=== PATIENT | male | born 1935 | race Caucasian/White ===

== ENCOUNTER → 2017-02-09 | Outpatient (CLI) | payer MEDICARE ==
[~2017-02-09] VITALS: Ht 190.5 cm; Wt 124.1 kg
[~2017-02-09] MED LIST: ALLO100T PO; ASCO500 PO; ASPI81TA2 PO; ATOR20TA86 PO; AZIT250T6 PO; BUME1TAB30 PO; CARV6 PO; COLC0.6T69 PO; DOXA1 PO; GABA-531 PO; HYDR25 PO; INSU100V SQ; INSU100V12 SQ; IPRA3AMP4 NEB; ISOS60TA4 PO; METF500T4 PO; MONT10TA21 PO; MULT1CAP32 PO; NORT10 PO; PRAM0.258 PO; ROFL500T PO
[2017-02-09 11:06] VITALS: BP 127/55
== END | disposition home or self-care (01) ==
LOC: HBOWC 09:32
PROVIDERS: ATTEND Emergency Medicine
DX: S81.801D Unspecified open wound, right lower leg, subsequent encounter (principal); R68.89 Other general symptoms and signs; I87.8 Other specified disorders of veins; E11.9 Type 2 diabetes mellitus without complications; I50.9 Heart failure, unspecified; X58.XXXD Exposure to other specified factors, subsequent encounter
CPT/HCPCS: 97597; 97598

== ENCOUNTER → 2017-02-16 | Outpatient (CLI) | payer MEDICARE ==
[~2017-02-16] MED LIST changes: +AUD NEB; -AZIT250T6 PO; -HYDR25 PO; +HYDR25TA84 PO; +INSNOV SQ; +IPRA3AMP4 IH; +IPRNEB IH; +LEVO500 PO; +PERCT PO; +PROM118S PO; +SERT50TA12 PO; +SM40I IVP; +TICA90TA PO
[2017-02-16 15:16] VITALS: BP 138/61
== END | disposition home or self-care (01) ==
LOC: HBOWC 13:59
PROVIDERS: ATTEND Emergency Medicine
DX: I87.2 Venous insufficiency (chronic) (peripheral) (principal); E11.622 Type 2 diabetes mellitus with other skin ulcer; L97.821 Non-pressure chronic ulcer of other part of left lower leg limited to breakdown of skin; I50.9 Heart failure, unspecified

== ENCOUNTER 2017-02-25 21:13 | Inpatient (IN) | payer MEDICARE ==
[~2017-02-25] VITALS: Ht 190.5 cm; Wt 125.8 kg
[~2017-02-25 21:13] MED LIST changes: -AUD NEB; -INSNOV SQ; -IPRA3AMP4 IH; -IPRNEB IH; -LEVO500 PO; -PERCT PO; -PROM118S PO; -SERT50TA12 PO; -SM40I IVP; -TICA90TA PO
[2017-02-25] MEDS ORDERED: PERCT PO (21:23)
[2017-02-25] MEDS ORDERED: SERT50TA12 PO (21:23)
[2017-02-25 21:33] LABS: EOSINOPHILS # (AUTO) 0.26 K/uL (0.00-0.70); EOSINOPHILS % (AUTO) 4.03 % (1.0-6.0); HEMATOCRIT 38.7 % (41-53); HEMOGLOBIN 12.2 g/dL (13.5-17.5); LYMPHOCYTES # (AUTO) 1.6 K/uL (1.0-4.8); LYMPHOCYTES % (AUTO) 24.7 % (22.0-44.0); MEAN CORPUSCULAR HEMOGLOBIN 27.8 pg (26.0-34.0); MEAN CORPUSCULAR HGB CONC 31.5 G/dL (31.0-37.0); MEAN CORPUSCULAR VOLUME 88 fL (80-100); MONOCYTES # (AUTO) 0.5 K/uL (0.1-1.0); MONOCYTES % (AUTO) 8.3 % (2.0-9.0); NEUTROPHILS # (AUTO) 4.1 K/uL (1.8-7.7); PLATELET COUNT (AUTO) 198 K/uL (150-450); RED BLOOD CELL COUNT(AUTO) 4.39 MIL/uL (4.50-5.90); RED CELL DISTRIBUTION WIDTH 17.6 % (11.5-14.5); WHITE BLOOD COUNT (AUTO) 6.6 K/uL (4.5-11.0)
[2017-02-25 21:37] LABS: GLUCOSE,POINT OF CARE 206 MG/DL (70-110)
[2017-02-25 21:39] LABS: ANION GAP 7 mmol/L (8-16); CALCIUM, TOTAL 8.9 mg/dL (8.8-10.5); CARBON DIOXIDE 30 mmol/L (22-29); CHLORIDE 103 mmol/L (98-107); CREATININE 1.18 mg/dL (0.60-1.30); GLOMERULAR FILTR. RATE CALC 59 mL/min (>60); POTASSIUM 4.9 mmol/L (3.5-5.1); SODIUM SERUM 140 mmol/L (136-145); UREA NITROGEN, BLOOD 23 mg/dL (7-18)
[2017-02-25 21:45] LABS: ALANINE AMINOTRANSFERASE 37 U/L (12-78); ALBUMIN 2.9 g/dL (3.4-5.0); ASPARTATE AMINOTRANSFERASE 32 U/L (15-37); BILIRUBIN,TOTAL 0.3 mg/dL (0.1-1.0); CREATINE KINASE, TOTAL 33 U/L (39-308); TOTAL PROTEIN, SERUM 7.5 g/dL (6.4-8.2)
[2017-02-25 21:48] LABS: INR 1.1 (0.9-1.1); PROTHROMBIN TIME 11.1 SEC (9.4-11.6)
[2017-02-25 21:58] LABS: RBC MORPHOLOGY COMMENT ABNORMAL RBC MORPH
[2017-02-25 21:59] LABS: B-TYPE NATRIURETIC PEPTIDE 382 pg/mL (0-100)
[2017-02-25] MEDS ORDERED: FUROSEMIDE 40 MG/4 ML VIAL IVP ONE (23:00)
[2017-02-25] MEDS: MORPHINE SULFATE 4 MG/ML SYRINGE IVP ONE ×2 (23:04→23:09)
[2017-02-25] MEDS ORDERED: FentaNYL CITRATE-PF 100 MCG/2 ML VIAL IVP ONE (23:15)
[2017-02-26] VITALS (20 sets, daily range): BP systolic 130–163; BP diastolic 56–87
[2017-02-26] MEDS ORDERED: ACETAMINOPHEN 325 MG TABLET PO PRN
[2017-02-26] MEDS ORDERED: ONDANSETRON HCL 4 MG/2 ML VIAL IVP PRN
[2017-02-26] MEDS ORDERED: 0.9% SODIUM CHLORIDE 10 ML SYRINGE IVP PRN
[2017-02-26 00:15] LABS: APPEARANCE,URINE CLEAR (CLEAR); GLUCOSE, URINE (UA) 100 mg/dL (NEGATIVE); KETONES,URINE NEGATIVE (NEGATIVE); LEUKOCYTE ESTERASE ,URINE TRACE (NEGATIVE); OCCULT BLOOD,URINE NEGATIVE (NEGATIVE); PH,URINE 5.5 (5.0-8.0); PROTEIN,URINE TRACE (NEGATIVE)
[2017-02-26 00:17] LABS: ADD UA MICROSCOPIC YES
[2017-02-26 00:24] LABS: RBC,URINE 0-2 /HPF (0-2); SQUAMOUS EPITHELIAL CELL,UR Rare /LPF (None Seen)
[2017-02-26] MEDS ORDERED: MethylPREDNISolone SOD SUCC 125 MG/2 ML VIAL IVP ONE ×2 (06:30)
[2017-02-26] MEDS: ALBUTEROL SULFATE 2.5 MG/0.5 ML NEB SOLUTION NEB SCH ×5 (06:54→22:57)
[2017-02-26] MEDS: IPRATROPIUM BROMIDE 0.5 MG/2.5 ML NEB SOLUTION NEB SCH ×5 (06:54→22:57)
[2017-02-26] MEDS ORDERED: HEPARIN SODIUM 25000 UNITS/D5W 250 ML IV PRN (08:15)
[2017-02-26] MEDS ORDERED: HEPARIN SODIUM,PORCINE 5,000 UNITS/ML VIAL IVP PRN ×2 (08:15)
[2017-02-26] MEDS ORDERED: HEPARIN SODIUM,PORCINE 5,000 UNITS/ML VIAL IVP ONE ×2 (08:30→12:45)
[2017-02-26] MEDS ORDERED: ASPIRIN 325 MG TABLET PO ONE (08:30)
[2017-02-26 08:49] LABS: BASOPHILS # (AUTO) 0.01 K/uL (0.00-0.20); BASOPHILS % (AUTO) 0.2 % (0.0-2.0); EOSINOPHILS % (AUTO) 0.07 % (1.0-6.0); HEMATOCRIT 38.7 % (41-53); HEMOGLOBIN 12.1 g/dL (13.5-17.5); LYMPHOCYTES # (AUTO) 0.6 K/uL (1.0-4.8); LYMPHOCYTES % (AUTO) 12.3 % (22.0-44.0); MEAN CORPUSCULAR HEMOGLOBIN 27.6 pg (26.0-34.0); MEAN CORPUSCULAR HGB CONC 31.3 G/dL (31.0-37.0); MEAN CORPUSCULAR VOLUME 88 fL (80-100); MONOCYTES % (AUTO) 0.6 % (2.0-9.0); NEUTROPHILS # (AUTO) 4.5 K/uL (1.8-7.7); PLATELET COUNT (AUTO) 192 K/uL (150-450); RED CELL DISTRIBUTION WIDTH 17.4 % (11.5-14.5); WHITE BLOOD COUNT (AUTO) 5.2 K/uL (4.5-11.0)
[2017-02-26 08:50] LABS: NEUTROPHILS % (AUTO) 86.9 % (40.0-70.0)
[2017-02-26] MEDS ORDERED: ASPIRIN 81 MG CHEWABLE TABLET PO SCH (09:00)
[2017-02-26] MEDS: MULTIVITAMINS, THERAPEUTIC TABLET PO SCH (09:33)
[2017-02-26] MEDS: ALLOPURINOL 100 MG TABLET PO SCH (09:33)
[2017-02-26 09:35] LABS: PROTHROMBIN TIME 10.7 SEC (9.4-11.6)
[2017-02-26] MEDS: ISOSORBIDE MONONITRATE 60 MG ER TABLET PO SCH (09:35)
[2017-02-26] MEDS: ASCORBIC ACID 500 MG TABLET PO SCH (09:36)
[2017-02-26] MEDS: HydrALAZINE HCL 25 MG TABLET PO SCH ×2 (09:36→20:54)
[2017-02-26] MEDS: CARVEDILOL 6.25 MG TABLET PO SCH ×2 (09:36→20:55)
[2017-02-26] MEDS: GABAPENTIN 300 MG CAPSULE PO SCH ×3 (09:36→20:55)
[2017-02-26] MEDS: DOXAZOSIN MESYLATE 1 MG TABLET PO SCH (09:37)
[2017-02-26] MEDS: SERTRALINE HCL 50 MG TABLET PO SCH (09:37)
[2017-02-26 09:38] LABS: RBC MORPHOLOGY COMMENT ABNORMAL RBC MORPH
[2017-02-26] MEDS: BUMETANIDE 1 MG TABLET PO SCH ×2 (09:38→21:00)
[2017-02-26] MEDS: PRAMIPEXOLE DI-HCL 0.25 MG TABLET PO SCH (09:38)
[2017-02-26] MEDS: ROFLUMILAST 500 MCG TABLET PO SCH (09:38)
[2017-02-26] MEDS: INSULIN DETEMIR 100 UNITS/ML SQ SCH ×2 (09:47→22:29)
[2017-02-26] MEDS ORDERED: LIDOCAINE HCL/PF 1% 30 ML VIAL ONE (11:44)
[2017-02-26] MEDS ORDERED: SODIUM BICARBONATE 50 MEQ/50 ML VIAL ONE (11:44)
[2017-02-26] MEDS ORDERED: HEPARIN SODIUM 1000 UNITS/NS 1,000 ML ONE (11:44)
[2017-02-26] MEDS ORDERED: IOHEXOL 300 MG/ML 150 ML VIAL ONE (11:44)
[2017-02-26] MEDS ORDERED: IOHEXOL 300 MG/ML 100 ML VIAL ONE ×3 (12:14→13:13)
[2017-02-26] MEDS ORDERED: EPTIFIBATIDE 2 MG/ML 10 ML VIAL IVP ONE ×2 (12:32→12:45)
[2017-02-26] MEDS ORDERED: EPTIFIBATIDE 75 MG/ISO-OSM 100 ML IV ONE (12:32)
[2017-02-26] MEDS ORDERED: IOHEXOL 300 MG/ML 50 ML VIAL ONE ×2 (12:34→12:50)
[2017-02-26] MEDS ORDERED: HEPARIN SODIUM 1000 UNITS/NS 500 ML ONE (12:35)
[2017-02-26] MEDS ORDERED: IOHEXOL 300 MG/ML 50 ML VIAL IARTER ONE (12:45)
[2017-02-26] MEDS ORDERED: IOHEXOL 300 MG/ML 100 ML VIAL IARTER ONE ×3 (12:45→13:15)
[2017-02-26] MEDS ORDERED: EPTIFIBATIDE 75 MG/ISO-OSM 100 ML IV SCH ×2 (12:45→13:30)
[2017-02-26] MEDS ORDERED: VERAPAMIL HCL 2.5 MG/ML 2 ML VIAL ONE (12:52)
[2017-02-26] MEDS ORDERED: NITROGLYCERIN 50 MG/D5% WATER 250 ML ONE (12:52)
[2017-02-26] MEDS ORDERED: TICAGRELOR 90 MG TABLET ONE (12:56)
[2017-02-26] MEDS ORDERED: SODIUM CHLORIDE 0.9% 500 ML IV ONE (13:07)
[2017-02-26] MEDS ORDERED: HEPARIN SODIUM 1000 UNITS/NS 1,000 ML IARTER ONE (13:07)
[2017-02-26] MEDS ORDERED: VERAPAMIL HCL 2.5 MG/ML 2 ML VIAL ICOR ONE (13:15)
[2017-02-26] MEDS ORDERED: NITROGLYCERIN/D5W 50 MG/250 ML IV BOTTLE ICOR ONE (13:15)
[2017-02-26] MEDS ORDERED: LIDOCAINE 1% 30 ML/SOD BICARB 8.4% 4 ML SQ ONE (13:15)
[2017-02-26] MEDS ORDERED: IOHEXOL 300 MG/ML 150 ML VIAL IARTER ONE (13:15)
[2017-02-26] MEDS ORDERED: TICAGRELOR 90 MG TABLET PO ONE (14:00)
[2017-02-26] MEDS: MethylPREDNISolone SOD SUCC 125 MG/2 ML VIAL IVP SCH (15:53)
[2017-02-26] MEDS ORDERED: BUMETANIDE 0.25 MG/ML 10 ML VIAL IVP ONE (16:15)
[2017-02-26] MEDS: INSULIN ASPART 100 UNITS/ML SQ SCH (17:18)
[2017-02-26] MEDS ORDERED: MetFORMIN HCL 500 MG TABLET PO SCH (18:00)
[2017-02-26 18:27] LABS: GLUCOSE COMMENT 1 Received Meds; GLUCOSE,POINT OF CARE 167 MG/DL (70-110)
[2017-02-26] MEDS: MONTELUKAST SODIUM 10 MG TABLET PO SCH (20:55)
[2017-02-26] MEDS: ATORVASTATIN CALCIUM 20 MG TABLET PO SCH (20:55)
[2017-02-26] MEDS: OxyCODONE HCL/ACETAMINOPHEN 5-325 MG TABLET PO PRN (20:55)
[2017-02-26] MEDS: TICAGRELOR 90 MG TABLET PO SCH (22:27)
[2017-02-26] MEDS: NORTRIPTYLINE HCL 10 MG CAPSULE PO SCH (22:28)
[2017-02-26 23:46] LABS: GLUCOSE,POINT OF CARE 197 MG/DL (70-110)
[2017-02-27] VITALS: BP 135/63
[2017-02-27] MEDS: MethylPREDNISolone SOD SUCC 125 MG/2 ML VIAL IVP SCH ×3 (00:39→17:22)
[2017-02-27] MEDS: ALBUTEROL SULFATE 2.5 MG/0.5 ML NEB SOLUTION NEB SCH ×6 (03:04→23:57)
[2017-02-27] MEDS: IPRATROPIUM BROMIDE 0.5 MG/2.5 ML NEB SOLUTION NEB SCH ×6 (03:04→23:57)
[2017-02-27 04:00] VITALS: BP 152/83
[2017-02-27 06:05] LABS: EOSINOPHILS % (AUTO) 0 % (1.0-6.0); HEMATOCRIT 38.3 % (41-53); LYMPHOCYTES # (AUTO) 0.8 K/uL (1.0-4.8); LYMPHOCYTES % (AUTO) 6.7 % (22.0-44.0); MEAN CORPUSCULAR HEMOGLOBIN 28.1 pg (26.0-34.0); MEAN CORPUSCULAR HGB CONC 31.3 G/dL (31.0-37.0); MEAN CORPUSCULAR VOLUME 90 fL (80-100); MONOCYTES # (AUTO) 0.3 K/uL (0.1-1.0); MONOCYTES % (AUTO) 2.6 % (2.0-9.0); NEUTROPHILS # (AUTO) 11.3 K/uL (1.8-7.7); PLATELET COUNT (AUTO) 209 K/uL (150-450); RED BLOOD CELL COUNT(AUTO) 4.27 MIL/uL (4.50-5.90); RED CELL DISTRIBUTION WIDTH 17.4 % (11.5-14.5); WHITE BLOOD COUNT (AUTO) 12.5 K/uL (4.5-11.0)
[2017-02-27 06:14] LABS: ALBUMIN 2.7 g/dL (3.4-5.0); BILIRUBIN,TOTAL 0.3 mg/dL (0.1-1.0); CALCIUM, TOTAL 8.9 mg/dL (8.8-10.5); CHOL/HDL RATIO 1.8 (4.2-7.3); CREATININE 1.19 mg/dL (0.60-1.30); MAGNESIUM 1.8 mg/dL (1.80-2.40); PHOSPHORUS 3.7 mg/dL (2.5-4.9); POTASSIUM 4.8 mmol/L (3.5-5.1)
[2017-02-27] MEDS: INSULIN ASPART 100 UNITS/ML SQ SCH ×2 (06:56→17:25)
[2017-02-27 07:02] LABS: NEUTROPHILS % (AUTO) 90.7 % (40.0-70.0)
[2017-02-27 07:03] LABS: RBC MORPHOLOGY COMMENT ABNORMAL RBC MORPH
[2017-02-27 07:05] LABS: HEMOGLOBIN A1C 7.4 % (4.5-6.2)
[2017-02-27] MEDS: ALLOPURINOL 100 MG TABLET PO SCH (09:58)
[2017-02-27] MEDS: ROFLUMILAST 500 MCG TABLET PO SCH (09:58)
[2017-02-27] MEDS: SERTRALINE HCL 50 MG TABLET PO SCH (09:58)
[2017-02-27] MEDS: GABAPENTIN 300 MG CAPSULE PO SCH ×3 (09:58→20:47)
[2017-02-27] MEDS: DOXAZOSIN MESYLATE 1 MG TABLET PO SCH (09:58)
[2017-02-27] MEDS: BUMETANIDE 1 MG TABLET PO SCH ×2 (09:58→20:48)
[2017-02-27] MEDS: TICAGRELOR 90 MG TABLET PO SCH ×2 (09:59→20:47)
[2017-02-27] MEDS: PRAMIPEXOLE DI-HCL 0.25 MG TABLET PO SCH (09:59)
[2017-02-27] MEDS: HydrALAZINE HCL 25 MG TABLET PO SCH (09:59)
[2017-02-27] MEDS: ASPIRIN 81 MG CHEWABLE TABLET PO SCH (09:59)
[2017-02-27] MEDS: ASCORBIC ACID 500 MG TABLET PO SCH (09:59)
[2017-02-27] MEDS: ISOSORBIDE MONONITRATE 60 MG ER TABLET PO SCH (09:59)
[2017-02-27] MEDS: MULTIVITAMINS, THERAPEUTIC TABLET PO SCH (10:00)
[2017-02-27] MEDS: CARVEDILOL 6.25 MG TABLET PO SCH ×2 (10:00→20:48)
[2017-02-27] MEDS: INSULIN DETEMIR 100 UNITS/ML SQ SCH ×2 (10:03→20:57)
[2017-02-27 11:57] LABS: GLUCOSE,POINT OF CARE 178 MG/DL (70-110)
[2017-02-27 12:07] LABS: GLUCOSE,POINT OF CARE 148 MG/DL (70-110)
[2017-02-27 12:07] LABS: GLUCOSE,POINT OF CARE 176 MG/DL (70-110)
[2017-02-27 15:10] VITALS: BP 124/59
[2017-02-27 19:32] VITALS: BP 131/60
[2017-02-27] MEDS: NORTRIPTYLINE HCL 10 MG CAPSULE PO SCH (20:47)
[2017-02-27] MEDS: MONTELUKAST SODIUM 10 MG TABLET PO SCH (20:48)
[2017-02-27] MEDS: ATORVASTATIN CALCIUM 20 MG TABLET PO SCH (20:48)
[2017-02-28 00:03] VITALS: BP 142/75
[2017-02-28] MEDS: MethylPREDNISolone SOD SUCC 125 MG/2 ML VIAL IVP SCH ×3 (01:08→15:32)
[2017-02-28] MEDS: HydrALAZINE HCL 25 MG TABLET PO SCH ×3 (01:08→19:57)
[2017-02-28] MEDS: ALBUTEROL SULFATE 2.5 MG/0.5 ML NEB SOLUTION NEB SCH ×6 (03:00→23:28)
[2017-02-28] MEDS: IPRATROPIUM BROMIDE 0.5 MG/2.5 ML NEB SOLUTION NEB SCH ×7 (03:00→23:28)
[2017-02-28 04:43] VITALS: BP 137/76
[2017-02-28] MEDS: INSULIN ASPART 100 UNITS/ML SQ SCH ×2 (06:19→18:01)
[2017-02-28 06:39] LABS: EOSINOPHILS % (AUTO) 0 % (1.0-6.0); HEMATOCRIT 38.4 % (41-53); HEMOGLOBIN 11.9 g/dL (13.5-17.5); LYMPHOCYTES # (AUTO) 0.6 K/uL (1.0-4.8); MEAN CORPUSCULAR HEMOGLOBIN 27.5 pg (26.0-34.0); MEAN CORPUSCULAR HGB CONC 30.9 G/dL (31.0-37.0); MEAN CORPUSCULAR VOLUME 89 fL (80-100); MONOCYTES # (AUTO) 0.4 K/uL (0.1-1.0); MONOCYTES % (AUTO) 3.3 % (2.0-9.0); NEUTROPHILS # (AUTO) 10.1 K/uL (1.8-7.7); PLATELET COUNT (AUTO) 197 K/uL (150-450); RED BLOOD CELL COUNT(AUTO) 4.32 MIL/uL (4.50-5.90); RED CELL DISTRIBUTION WIDTH 17.3 % (11.5-14.5); WHITE BLOOD COUNT (AUTO) 11.1 K/uL (4.5-11.0)
[2017-02-28 06:46] LABS: CALCIUM, TOTAL 8.8 mg/dL (8.8-10.5); CREATININE 1.72 mg/dL (0.60-1.30); POTASSIUM 5.1 mmol/L (3.5-5.1)
[2017-02-28 07:10] LABS: NEUTROPHILS % (AUTO) 91.7 % (40.0-70.0)
[2017-02-28 07:28] VITALS: BP 140/75
[2017-02-28] MEDS: ROFLUMILAST 500 MCG TABLET PO SCH (08:12)
[2017-02-28] MEDS: GABAPENTIN 300 MG CAPSULE PO SCH ×3 (08:12→19:58)
[2017-02-28] MEDS: PRAMIPEXOLE DI-HCL 0.25 MG TABLET PO SCH (08:13)
[2017-02-28] MEDS: CARVEDILOL 6.25 MG TABLET PO SCH ×2 (08:13→20:35)
[2017-02-28] MEDS: DOXAZOSIN MESYLATE 1 MG TABLET PO SCH (08:13)
[2017-02-28] MEDS: ISOSORBIDE MONONITRATE 60 MG ER TABLET PO SCH (08:14)
[2017-02-28] MEDS: MULTIVITAMINS, THERAPEUTIC TABLET PO SCH (08:14)
[2017-02-28] MEDS: SERTRALINE HCL 50 MG TABLET PO SCH (08:14)
[2017-02-28] MEDS: ALLOPURINOL 100 MG TABLET PO SCH (08:14)
[2017-02-28] MEDS: ASCORBIC ACID 500 MG TABLET PO SCH (08:14)
[2017-02-28] MEDS: ASPIRIN 81 MG CHEWABLE TABLET PO SCH (08:15)
[2017-02-28] MEDS: BUMETANIDE 1 MG TABLET PO SCH ×2 (08:15→19:57)
[2017-02-28] MEDS: TICAGRELOR 90 MG TABLET PO SCH ×2 (08:16→19:58)
[2017-02-28] MEDS: INSULIN DETEMIR 100 UNITS/ML SQ SCH ×2 (08:32→20:37)
[2017-02-28 09:15] LABS: RBC MORPHOLOGY COMMENT ABNORMAL RBC MORPH
[2017-02-28 11:43] VITALS: BP 137/70
[2017-02-28] MEDS ORDERED: PROMETHAZINE HCL/CODEINE 6.25-10MG/5ML SYRUP UDCUP PO PRN (11:45)
[2017-02-28] MEDS: LEVOFLOXACIN 500 MG TABLET PO SCH (12:07)
[2017-02-28 15:00] LABS: CREATINE KINASE MB 5.1 ng/mL (0-5)
[2017-02-28 15:37] VITALS: BP 134/70
[2017-02-28 19:36] VITALS: BP 139/70
[2017-02-28] MEDS: ATORVASTATIN CALCIUM 20 MG TABLET PO SCH (19:57)
[2017-02-28] MEDS: MONTELUKAST SODIUM 10 MG TABLET PO SCH (19:58)
[2017-02-28] MEDS: NORTRIPTYLINE HCL 10 MG CAPSULE PO SCH (19:58)
[2017-03-01] VITALS (7 sets, daily range): BP systolic 126–159; BP diastolic 67–92
[2017-03-01] MEDS: MethylPREDNISolone SOD SUCC 125 MG/2 ML VIAL IVP SCH ×3 (00:43→16:41)
[2017-03-01] MEDS: OxyCODONE HCL/ACETAMINOPHEN 5-325 MG TABLET PO PRN (03:00)
[2017-03-01] MEDS: ALBUTEROL SULFATE 2.5 MG/0.5 ML NEB SOLUTION NEB SCH ×6 (03:02→23:50)
[2017-03-01] MEDS: IPRATROPIUM BROMIDE 0.5 MG/2.5 ML NEB SOLUTION NEB SCH ×6 (03:02→23:50)
[2017-03-01] MEDS: INSULIN ASPART 100 UNITS/ML SQ SCH ×2 (06:33→18:05)
[2017-03-01 06:49] LABS: ALBUMIN 2.7 g/dL (3.4-5.0); BILIRUBIN,TOTAL 0.3 mg/dL (0.1-1.0); CALCIUM, TOTAL 8.2 mg/dL (8.8-10.5); POTASSIUM 5.2 mmol/L (3.5-5.1); TOTAL PROTEIN, SERUM 6.3 g/dL (6.4-8.2)
[2017-03-01 07:19] LABS: EOSINOPHILS % (AUTO) 0 % (1.0-6.0); HEMATOCRIT 37.7 % (41-53); HEMOGLOBIN 11.7 g/dL (13.5-17.5); LYMPHOCYTES # (AUTO) 0.3 K/uL (1.0-4.8); LYMPHOCYTES % (AUTO) 3.2 % (22.0-44.0); MEAN CORPUSCULAR HEMOGLOBIN 28.1 pg (26.0-34.0); MEAN CORPUSCULAR HGB CONC 31.1 G/dL (31.0-37.0); MEAN CORPUSCULAR VOLUME 90 fL (80-100); MONOCYTES # (AUTO) 0.3 K/uL (0.1-1.0); MONOCYTES % (AUTO) 3.3 % (2.0-9.0); NEUTROPHILS # (AUTO) 9.3 K/uL (1.8-7.7); PLATELET COUNT (AUTO) 178 K/uL (150-450); RED BLOOD CELL COUNT(AUTO) 4.18 MIL/uL (4.50-5.90); RED CELL DISTRIBUTION WIDTH 17.5 % (11.5-14.5); WHITE BLOOD COUNT (AUTO) 9.9 K/uL (4.5-11.0)
[2017-03-01 07:42] LABS: NEUTROPHILS % (AUTO) 93.5 % (40.0-70.0)
[2017-03-01 07:52] LABS: GLUCOSE COMMENT 1 Received Meds; GLUCOSE,POINT OF CARE 256 MG/DL (70-110)
[2017-03-01 07:57] LABS: GLUCOSE,POINT OF CARE 185 MG/DL (70-110)
[2017-03-01] MEDS: HydrALAZINE HCL 25 MG TABLET PO SCH ×2 (09:00→20:20)
[2017-03-01] MEDS: DOXAZOSIN MESYLATE 1 MG TABLET PO SCH (09:00)
[2017-03-01] MEDS: LEVOFLOXACIN 500 MG TABLET PO SCH (09:00)
[2017-03-01] MEDS: SERTRALINE HCL 50 MG TABLET PO SCH (09:00)
[2017-03-01] MEDS: TICAGRELOR 90 MG TABLET PO SCH ×2 (09:00→20:20)
[2017-03-01] MEDS: GABAPENTIN 300 MG CAPSULE PO SCH ×3 (09:00→20:20)
[2017-03-01] MEDS: ASPIRIN 81 MG CHEWABLE TABLET PO SCH (09:00)
[2017-03-01] MEDS: BUMETANIDE 1 MG TABLET PO SCH ×2 (09:01→20:19)
[2017-03-01] MEDS: CARVEDILOL 6.25 MG TABLET PO SCH ×2 (09:01→20:20)
[2017-03-01] MEDS: MULTIVITAMINS, THERAPEUTIC TABLET PO SCH (09:01)
[2017-03-01] MEDS: PRAMIPEXOLE DI-HCL 0.25 MG TABLET PO SCH (09:01)
[2017-03-01] MEDS: ISOSORBIDE MONONITRATE 60 MG ER TABLET PO SCH (09:01)
[2017-03-01] MEDS: ASCORBIC ACID 500 MG TABLET PO SCH (09:01)
[2017-03-01] MEDS: ALLOPURINOL 100 MG TABLET PO SCH (09:01)
[2017-03-01] MEDS: ROFLUMILAST 500 MCG TABLET PO SCH (09:01)
[2017-03-01 10:12] LABS: RBC MORPHOLOGY COMMENT ABNORMAL RBC MORPH
[2017-03-01] MEDS: INSULIN DETEMIR 100 UNITS/ML SQ SCH ×2 (10:22→20:22)
[2017-03-01] MEDS ORDERED: DEXTROSE 50%-WATER 25 GM/50 ML SYRINGE IVP PRN (14:45)
[2017-03-01] MEDS ORDERED: SODIUM POLYSTYRENE SULFONATE 15 GM/60 ML SUSPENSION BOTTLE PO ONE (17:00)
[2017-03-01] MEDS: INSULIN ASPART 100 UNITS/ML SQ PRN ×2 (18:06→20:23)
[2017-03-01] MEDS: ATORVASTATIN CALCIUM 20 MG TABLET PO SCH (20:20)
[2017-03-01] MEDS: MONTELUKAST SODIUM 10 MG TABLET PO SCH (20:20)
[2017-03-01] MEDS: NORTRIPTYLINE HCL 10 MG CAPSULE PO SCH (20:20)
[2017-03-02] MEDS: MethylPREDNISolone SOD SUCC 125 MG/2 ML VIAL IVP SCH ×3 (00:26→16:31)
[2017-03-02] MEDS: IPRATROPIUM BROMIDE 0.5 MG/2.5 ML NEB SOLUTION NEB SCH ×6 (03:14→23:22)
[2017-03-02] MEDS: ALBUTEROL SULFATE 2.5 MG/0.5 ML NEB SOLUTION NEB SCH ×6 (03:14→23:22)
[2017-03-02 04:05] VITALS: BP 138/71
[2017-03-02] MEDS: INSULIN ASPART 100 UNITS/ML SQ SCH ×2 (05:58→17:59)
[2017-03-02] MEDS: INSULIN ASPART 100 UNITS/ML SQ PRN ×4 (05:59→20:22)
[2017-03-02 07:22] VITALS: BP 132/72
[2017-03-02 07:50] LABS: EOSINOPHILS % (AUTO) 0.1 % (1.0-6.0); HEMATOCRIT 37.2 % (41-53); HEMOGLOBIN 11.4 g/dL (13.5-17.5); LYMPHOCYTES # (AUTO) 0.3 K/uL (1.0-4.8); LYMPHOCYTES % (AUTO) 3.2 % (22.0-44.0); MEAN CORPUSCULAR HEMOGLOBIN 27.3 pg (26.0-34.0); MEAN CORPUSCULAR HGB CONC 30.6 G/dL (31.0-37.0); MEAN CORPUSCULAR VOLUME 89 fL (80-100); MONOCYTES # (AUTO) 0.4 K/uL (0.1-1.0); MONOCYTES % (AUTO) 3.9 % (2.0-9.0); NEUTROPHILS # (AUTO) 8.6 K/uL (1.8-7.7); PLATELET COUNT (AUTO) 166 K/uL (150-450); RED BLOOD CELL COUNT(AUTO) 4.17 MIL/uL (4.50-5.90); RED CELL DISTRIBUTION WIDTH 17.3 % (11.5-14.5); WHITE BLOOD COUNT (AUTO) 9.2 K/uL (4.5-11.0)
[2017-03-02 08:08] LABS: NEUTROPHILS % (AUTO) 92.8 % (40.0-70.0)
[2017-03-02 08:09] LABS: ALBUMIN 2.5 g/dL (3.4-5.0); BILIRUBIN,TOTAL 0.3 mg/dL (0.1-1.0); CALCIUM, TOTAL 8.1 mg/dL (8.8-10.5); POTASSIUM 4.3 mmol/L (3.5-5.1); RBC MORPHOLOGY COMMENT ABNORMAL RBC MORPH; TOTAL PROTEIN, SERUM 6.3 g/dL (6.4-8.2)
[2017-03-02] MEDS: TICAGRELOR 90 MG TABLET PO SCH ×3 (08:15→20:25)
[2017-03-02] MEDS: ASPIRIN 81 MG CHEWABLE TABLET PO SCH (08:16)
[2017-03-02] MEDS: MULTIVITAMINS, THERAPEUTIC TABLET PO SCH (08:16)
[2017-03-02] MEDS: GABAPENTIN 300 MG CAPSULE PO SCH ×3 (08:16→20:24)
[2017-03-02] MEDS: CARVEDILOL 6.25 MG TABLET PO SCH ×2 (08:17→20:24)
[2017-03-02] MEDS: HydrALAZINE HCL 25 MG TABLET PO SCH ×2 (08:17→20:23)
[2017-03-02] MEDS: LEVOFLOXACIN 500 MG TABLET PO SCH (08:17)
[2017-03-02] MEDS: BUMETANIDE 1 MG TABLET PO SCH ×2 (08:17→20:23)
[2017-03-02] MEDS: ASCORBIC ACID 500 MG TABLET PO SCH (08:18)
[2017-03-02] MEDS: ISOSORBIDE MONONITRATE 60 MG ER TABLET PO SCH (08:18)
[2017-03-02] MEDS: ALLOPURINOL 100 MG TABLET PO SCH (08:18)
[2017-03-02] MEDS: ROFLUMILAST 500 MCG TABLET PO SCH (08:19)
[2017-03-02] MEDS: SERTRALINE HCL 50 MG TABLET PO SCH (08:19)
[2017-03-02] MEDS: PRAMIPEXOLE DI-HCL 0.25 MG TABLET PO SCH (08:20)
[2017-03-02] MEDS: DOXAZOSIN MESYLATE 1 MG TABLET PO SCH (08:21)
[2017-03-02] MEDS: INSULIN DETEMIR 100 UNITS/ML SQ SCH ×2 (08:33→20:23)
[2017-03-02 11:38] VITALS: BP 143/80
[2017-03-02 15:13] VITALS: BP 135/79
[2017-03-02 19:46] VITALS: BP 139/75
[2017-03-02] MEDS: ATORVASTATIN CALCIUM 20 MG TABLET PO SCH (20:23)
[2017-03-02] MEDS: NORTRIPTYLINE HCL 10 MG CAPSULE PO SCH (20:24)
[2017-03-02] MEDS: MONTELUKAST SODIUM 10 MG TABLET PO SCH (20:24)
[2017-03-02 23:57] VITALS: BP 145/71
[2017-03-03] MEDS: MethylPREDNISolone SOD SUCC 125 MG/2 ML VIAL IVP SCH ×3 (00:47→17:04)
[2017-03-03] MEDS: IPRATROPIUM BROMIDE 0.5 MG/2.5 ML NEB SOLUTION NEB SCH ×6 (03:00→23:26)
[2017-03-03] MEDS: ALBUTEROL SULFATE 2.5 MG/0.5 ML NEB SOLUTION NEB SCH ×6 (03:00→23:26)
[2017-03-03 04:19] VITALS: BP 138/74
[2017-03-03] MEDS: INSULIN ASPART 100 UNITS/ML SQ SCH ×2 (05:43→17:29)
[2017-03-03] MEDS: INSULIN ASPART 100 UNITS/ML SQ PRN ×4 (05:45→21:30)
[2017-03-03 06:59] LABS: EOSINOPHILS % (AUTO) 0 % (1.0-6.0); HEMOGLOBIN 12.4 g/dL (13.5-17.5); LYMPHOCYTES # (AUTO) 0.3 K/uL (1.0-4.8); LYMPHOCYTES % (AUTO) 2.9 % (22.0-44.0); MEAN CORPUSCULAR HEMOGLOBIN 27.5 pg (26.0-34.0); MEAN CORPUSCULAR HGB CONC 30.9 G/dL (31.0-37.0); MEAN CORPUSCULAR VOLUME 89 fL (80-100); MONOCYTES # (AUTO) 0.5 K/uL (0.1-1.0); MONOCYTES % (AUTO) 4.4 % (2.0-9.0); NEUTROPHILS # (AUTO) 10.2 K/uL (1.8-7.7); PLATELET COUNT (AUTO) 202 K/uL (150-450); RED BLOOD CELL COUNT(AUTO) 4.51 MIL/uL (4.50-5.90); RED CELL DISTRIBUTION WIDTH 17.2 % (11.5-14.5)
[2017-03-03 07:07] LABS: CALCIUM, TOTAL 8.5 mg/dL (8.8-10.5); CREATININE 1.68 mg/dL (0.60-1.30); MAGNESIUM 2.3 mg/dL (1.80-2.40); PHOSPHORUS 3.5 mg/dL (2.5-4.9); POTASSIUM 3.8 mmol/L (3.5-5.1)
[2017-03-03 07:38] VITALS: BP 134/71
[2017-03-03 07:38] LABS: NEUTROPHILS % (AUTO) 92.7 % (40.0-70.0)
[2017-03-03] MEDS: ASPIRIN 81 MG CHEWABLE TABLET PO SCH (08:19)
[2017-03-03] MEDS: LEVOFLOXACIN 500 MG TABLET PO SCH (08:19)
[2017-03-03] MEDS: MULTIVITAMINS, THERAPEUTIC TABLET PO SCH (08:19)
[2017-03-03] MEDS: CARVEDILOL 6.25 MG TABLET PO SCH ×2 (08:19→21:26)
[2017-03-03] MEDS: GABAPENTIN 300 MG CAPSULE PO SCH ×3 (08:19→21:26)
[2017-03-03] MEDS: BUMETANIDE 1 MG TABLET PO SCH (08:20)
[2017-03-03] MEDS: DOXAZOSIN MESYLATE 1 MG TABLET PO SCH (08:21)
[2017-03-03] MEDS: PRAMIPEXOLE DI-HCL 0.25 MG TABLET PO SCH (08:21)
[2017-03-03] MEDS: ALLOPURINOL 100 MG TABLET PO SCH (08:22)
[2017-03-03] MEDS: HydrALAZINE HCL 25 MG TABLET PO SCH ×2 (08:22→21:26)
[2017-03-03] MEDS: SERTRALINE HCL 50 MG TABLET PO SCH (08:22)
[2017-03-03] MEDS: ASCORBIC ACID 500 MG TABLET PO SCH (08:23)
[2017-03-03] MEDS: ROFLUMILAST 500 MCG TABLET PO SCH (08:23)
[2017-03-03] MEDS: TICAGRELOR 90 MG TABLET PO SCH ×2 (08:24→21:26)
[2017-03-03] MEDS: ISOSORBIDE MONONITRATE 60 MG ER TABLET PO SCH (08:24)
[2017-03-03] MEDS: INSULIN DETEMIR 100 UNITS/ML SQ SCH ×2 (08:41→21:29)
[2017-03-03 09:20] LABS: RBC MORPHOLOGY COMMENT ABNORMAL RBC MORPH
[2017-03-03 11:27] VITALS: BP 120/75
[2017-03-03 15:30] VITALS: BP 130/64
[2017-03-03 19:49] VITALS: BP 139/76
[2017-03-03] MEDS: NORTRIPTYLINE HCL 10 MG CAPSULE PO SCH (21:26)
[2017-03-03] MEDS: ATORVASTATIN CALCIUM 20 MG TABLET PO SCH (21:26)
[2017-03-03] MEDS: MONTELUKAST SODIUM 10 MG TABLET PO SCH (21:26)
[2017-03-03 23:15] VITALS: BP 133/72
[2017-03-04] MEDS: MethylPREDNISolone SOD SUCC 125 MG/2 ML VIAL IVP SCH ×3 (00:30→16:22)
[2017-03-04] MEDS: ALBUTEROL SULFATE 2.5 MG/0.5 ML NEB SOLUTION NEB SCH ×4 (03:17→15:50)
[2017-03-04] MEDS: IPRATROPIUM BROMIDE 0.5 MG/2.5 ML NEB SOLUTION NEB SCH ×4 (03:17→15:50)
[2017-03-04 04:38] VITALS: BP 142/79
[2017-03-04] MEDS: INSULIN ASPART 100 UNITS/ML SQ SCH ×2 (06:21→17:37)
[2017-03-04] MEDS: INSULIN ASPART 100 UNITS/ML SQ PRN ×3 (06:22→17:38)
[2017-03-04 07:09] LABS: CALCIUM, TOTAL 8.5 mg/dL (8.8-10.5); CREATININE 1.35 mg/dL (0.60-1.30); MAGNESIUM 2.3 mg/dL (1.80-2.40); PHOSPHORUS 3.3 mg/dL (2.5-4.9)
[2017-03-04 07:20] VITALS: BP 146/76
[2017-03-04] MEDS: TICAGRELOR 90 MG TABLET PO SCH (09:20)
[2017-03-04] MEDS: HydrALAZINE HCL 25 MG TABLET PO SCH (09:20)
[2017-03-04] MEDS: ASPIRIN 81 MG CHEWABLE TABLET PO SCH (09:20)
[2017-03-04] MEDS: DOXAZOSIN MESYLATE 1 MG TABLET PO SCH (09:20)
[2017-03-04] MEDS: CARVEDILOL 6.25 MG TABLET PO SCH (09:21)
[2017-03-04] MEDS: ISOSORBIDE MONONITRATE 60 MG ER TABLET PO SCH (09:21)
[2017-03-04] MEDS: LEVOFLOXACIN 500 MG TABLET PO SCH (09:21)
[2017-03-04] MEDS: ROFLUMILAST 500 MCG TABLET PO SCH (09:21)
[2017-03-04] MEDS: PRAMIPEXOLE DI-HCL 0.25 MG TABLET PO SCH (09:22)
[2017-03-04] MEDS: ASCORBIC ACID 500 MG TABLET PO SCH (09:22)
[2017-03-04] MEDS: GABAPENTIN 300 MG CAPSULE PO SCH ×2 (09:22→16:22)
[2017-03-04] MEDS: ALLOPURINOL 100 MG TABLET PO SCH (09:22)
[2017-03-04] MEDS: MULTIVITAMINS, THERAPEUTIC TABLET PO SCH (09:22)
[2017-03-04] MEDS: SERTRALINE HCL 50 MG TABLET PO SCH (09:22)
[2017-03-04] MEDS: INSULIN DETEMIR 100 UNITS/ML SQ SCH (09:24)
[2017-03-04 11:07] VITALS: BP 114/67
[2017-03-04] MEDS ORDERED: SODIUM CL IRRIG SOLN BOTTLE 250 ML IRRIG ONE (13:59)
[2017-03-04 15:39] VITALS: BP 131/78
[2017-03-04] MEDS ORDERED: INSNOV SQ (16:56)
[2017-03-04] MEDS ORDERED: LEVO500 PO (16:57)
[2017-03-04] MEDS ORDERED: SM40I IVP (17:01)
[2017-03-04] MEDS ORDERED: AUD NEB (17:07)
[2017-03-04] MEDS ORDERED: IPRNEB IH (17:09)
[2017-03-04] MEDS ORDERED: TICA90TA PO (17:09)
[2017-03-04] MEDS ORDERED: PROM118S PO (17:10)
[2017-03-05 17:37] LABS: GLUCOSE COMMENT 1 Received Meds; GLUCOSE,POINT OF CARE 202 MG/DL (70-110)
[2017-03-05 17:37] LABS: GLUCOSE COMMENT 1 Received Meds; GLUCOSE,POINT OF CARE 191 MG/DL (70-110)
[2017-03-07 18:18] LABS: GLUCOSE COMMENT 1 Received Meds; GLUCOSE,POINT OF CARE 358 MG/DL (70-110)
[2017-03-07 18:18] LABS: GLUCOSE COMMENT 1 Received Meds; GLUCOSE,POINT OF CARE 228 MG/DL (70-110)
[2017-03-07 18:18] LABS: GLUCOSE COMMENT 1 Received Meds; GLUCOSE,POINT OF CARE 358 MG/DL (70-110)
[2017-03-07 18:18] LABS: GLUCOSE COMMENT 1 Received Meds; GLUCOSE,POINT OF CARE 242 MG/DL (70-110)
[2017-03-07 18:18] LABS: GLUCOSE COMMENT 1 Received Meds; GLUCOSE,POINT OF CARE 254 MG/DL (70-110)
[2017-03-07 18:19] LABS: GLUCOSE,POINT OF CARE 227 MG/DL (70-110)
[2017-03-07 18:19] LABS: GLUCOSE,POINT OF CARE 282 MG/DL (70-110)
[2017-03-07 18:19] LABS: GLUCOSE COMMENT 1 Received Meds; GLUCOSE,POINT OF CARE 259 MG/DL (70-110)
[2017-03-08 06:30] LABS: GLUCOSE COMMENT 1 Received Meds; GLUCOSE,POINT OF CARE 221 MG/DL (70-110)
[2017-03-08 06:30] LABS: GLUCOSE COMMENT 1 Received Meds; GLUCOSE,POINT OF CARE 294 MG/DL (70-110)
[2017-03-08 06:31] LABS: GLUCOSE COMMENT 1 Received Meds; GLUCOSE,POINT OF CARE 336 MG/DL (70-110)
[2017-03-08 06:33] LABS: GLUCOSE COMMENT 1 Received Meds; GLUCOSE,POINT OF CARE 283 MG/DL (70-110)
[2017-03-08 06:33] LABS: GLUCOSE COMMENT 1 Received Meds; GLUCOSE,POINT OF CARE 184 MG/DL (70-110)
[2017-03-08 06:34] LABS: GLUCOSE COMMENT 1 Doctor Notified; GLUCOSE,POINT OF CARE 416 MG/DL (70-110)
[2017-03-08 06:34] LABS: GLUCOSE COMMENT 1 Received Meds; GLUCOSE,POINT OF CARE 297 MG/DL (70-110)
[2017-03-08 06:34] LABS: GLUCOSE COMMENT 1 Received Meds; GLUCOSE,POINT OF CARE 271 MG/DL (70-110)
== END 2017-03-04 17:55 | DRG 246 ==
LOC: EMS 21:15 → 5N 23:06 → ICU 02-26 13:45 → 5S 02-27 14:50
PROVIDERS: ADMIT Family Medicine; ATTEND Family Medicine
PROC: 027035Z Dilation of Coronary Artery, One Artery with Two Drug-eluting Intraluminal Devices, Percutaneous Approach (ICD-10-PCS; principal; 2017-02-26)
PROC: 4A023N7 Measurement of Cardiac Sampling and Pressure, Left Heart, Percutaneous Approach (ICD-10-PCS; 2017-02-26)
PROC: B2111ZZ Fluoroscopy of Multiple Coronary Arteries using Low Osmolar Contrast (ICD-10-PCS; 2017-02-26)
PROC: B2151ZZ Fluoroscopy of Left Heart using Low Osmolar Contrast (ICD-10-PCS; 2017-02-26)
PROC: B41F1ZZ Fluoroscopy of Right Lower Extremity Arteries using Low Osmolar Contrast (ICD-10-PCS; 2017-02-26)
DX: I21.4 Non-ST elevation (NSTEMI) myocardial infarction (principal); N17.0 Acute kidney failure with tubular necrosis; I13.0 Hypertensive heart and chronic kidney disease with heart failure and stage 1 through stage 4 chronic kidney disease, or unspecified chronic kidney disease; G89.29 Other chronic pain; G47.33 Obstructive sleep apnea (adult) (pediatric); I25.10 Atherosclerotic heart disease of native coronary artery without angina pectoris; I50.9 Heart failure, unspecified; J06.9 Acute upper respiratory infection, unspecified; J44.9 Chronic obstructive pulmonary disease, unspecified; F03.90 Unspecified dementia, unspecified severity, without behavioral disturbance, psychotic disturbance, mood disturbance, and anxiety; E86.1 Hypovolemia; E78.5 Hyperlipidemia, unspecified; E78.00 Pure hypercholesterolemia, unspecified; E11.22 Type 2 diabetes mellitus with diabetic chronic kidney disease; E11.21 Type 2 diabetes mellitus with diabetic nephropathy; D64.9 Anemia, unspecified; M10.9 Gout, unspecified; M19.90 Unspecified osteoarthritis, unspecified site; N18.9 Chronic kidney disease, unspecified; Z79.899 Other long term (current) drug therapy; Z79.891 Long term (current) use of opiate analgesic; Z79.82 Long term (current) use of aspirin; Z79.4 Long term (current) use of insulin; I25.2 Old myocardial infarction; Z87.891 Personal history of nicotine dependence; Z95.5 Presence of coronary angioplasty implant and graft
CPT/HCPCS: 76770; 82570; 82962; 83036; 83735; 84100; 84132; 84300; 84540; 87081; 92920; 92928; 93005; 93306; 94640; 96374; 96375; 97110; 97116; 97161; 97530; 97535; 99285; J1327; J1644; J1815; J1940; J2270; J2930; J3010; J3490; Q9967

== ENCOUNTER 2017-03-11 13:50 | Inpatient (IN) | payer MEDICARE ==
[~2017-03-11] VITALS: Ht 190.5 cm; Wt 127.0 kg
[~2017-03-11 13:50] MED LIST changes: +AUD NEB; -COLC0.6T69 PO; +INSNOV SQ; -IPRA3AMP4 NEB; +IPRNEB IH; +LEVO500 PO; +PERCT PO; +PROM118S PO; +SERT50TA12 PO; +SM40I IVP; +TICA90TA PO
[2017-03-11] MEDS ORDERED: IPRA3AMP4 IH (14:31)
[2017-03-11 14:46] LABS: GLUCOSE,POINT OF CARE 378 MG/DL (70-110)
[2017-03-11] MEDS ORDERED: ALBUTEROL SULFATE 5 MG/ML 20 ML NEB SOLN [BULK] NEB ONE (15:00)
[2017-03-11] MEDS ORDERED: IPRATROPIUM BROMIDE 0.5 MG/2.5 ML NEB SOLUTION NEB ONE (15:00)
[2017-03-11] MEDS ORDERED: 0.9% SODIUM CHLORIDE 15 ML NEB SOLUTION NEB ONE (15:07)
[2017-03-11 15:29] LABS: CREATININE 1.5 mg/dL (0.60-1.30); POTASSIUM 5.5 mmol/L (3.5-5.1)
[2017-03-11] MEDS ORDERED: FUROSEMIDE 40 MG/4 ML VIAL IVP ONE (15:30)
[2017-03-11 15:31] LABS: EOSINOPHILS % (AUTO) 0.6 % (1.0-6.0); HEMATOCRIT 25.8 % (41-53); HEMOGLOBIN 7.7 g/dL (13.5-17.5); LYMPHOCYTES % (AUTO) 7.1 % (22.0-44.0); MEAN CORPUSCULAR HEMOGLOBIN 26.2 pg (26.0-34.0); MEAN CORPUSCULAR HGB CONC 29.8 G/dL (31.0-37.0); MEAN CORPUSCULAR VOLUME 88 fL (80-100); MONOCYTES # (AUTO) 0.8 K/uL (0.1-1.0); NEUTROPHILS # (AUTO) 11.6 K/uL (1.8-7.7); PLATELET COUNT (AUTO) 126 K/uL (150-450); RED BLOOD CELL COUNT(AUTO) 2.94 MIL/uL (4.50-5.90); RED CELL DISTRIBUTION WIDTH 17.3 % (11.5-14.5); WHITE BLOOD COUNT (AUTO) 13.4 K/uL (4.5-11.0)
[2017-03-11 15:32] LABS: NEUTROPHILS % (AUTO) 86.3 % (40.0-70.0)
[2017-03-11 15:36] LABS: LACTIC ACID 1.2 mmol/L (0.4-2.0)
[2017-03-11 15:42] LABS: APPEARANCE,URINE CLOUDY (CLEAR); GLUCOSE, URINE (UA) >=1000 mg/dL (NEGATIVE); KETONES,URINE NEGATIVE (NEGATIVE); LEUKOCYTE ESTERASE ,URINE MODERATE (NEGATIVE); OCCULT BLOOD,URINE NEGATIVE (NEGATIVE); PROTEIN,URINE NEGATIVE (NEGATIVE)
[2017-03-11 15:43] LABS: ALBUMIN 2.1 g/dL (3.4-5.0); BILIRUBIN,TOTAL 0.3 mg/dL (0.1-1.0); TOTAL PROTEIN, SERUM 5.2 g/dL (6.4-8.2)
[2017-03-11 15:48] LABS: ADD UA MICROSCOPIC YES
[2017-03-11 15:49] LABS: COARSE GRANULAR CASTS,URINE 0-2 /LPF (None Seen); FINE GRANULAR CASTS,URINE 0-2 /LPF (None Seen); RBC,URINE 0-2 /HPF (0-2); SQUAMOUS EPITHELIAL CELL,UR Few /LPF (None Seen); WBC,URINE 26-50 /HPF (0-5)
[2017-03-11] MEDS ORDERED: CefTRIAXone 1 GM/DEXTROSE 50 ML IV ONE (16:15)
[2017-03-11] MEDS ORDERED: DEXAMETHASONE SOD PHOS 4 MG/ML 5 ML VIAL IVP ONE (16:15)
[2017-03-11 16:24] LABS: RBC MORPHOLOGY COMMENT ABNORMAL RBC MORPH
[2017-03-11] MEDS ORDERED: ACETAMINOPHEN 325 MG TABLET PO PRN ×3 (17:00→21:00)
[2017-03-11] MEDS ORDERED: 0.9% SODIUM CHLORIDE 10 ML SYRINGE IVP PRN ×2 (17:00→21:00)
[2017-03-11] MEDS ORDERED: ONDANSETRON HCL 4 MG/2 ML VIAL IVP PRN ×3 (17:00→21:00)
[2017-03-11 17:10] LABS: PROTHROMBIN TIME 10.4 SEC (9.4-11.6)
[2017-03-11 18:51] LABS: ABG BASE EXCESS 5.1 mmol/L (-2.0-3.0); ABG HCO3 28.4 mmol/L (22.0-26.0); ABG OXYHEMOGLOBIN 93.6 % (94.0-100.0); ABG PCO2 54 mmHg (35-45); ABG PH 7.371 (7.35-7.450)
[2017-03-11 18:52] LABS: ALLEN TEST, BLOOD GAS POS
[2017-03-11 18:59] LABS: CREATINE KINASE, TOTAL 48 U/L (39-308)
[2017-03-11 20:15] VITALS: BP 99/46
[2017-03-11 20:20] VITALS: BP 116/61
[2017-03-12 00:03] VITALS: BP 106/60
[2017-03-12] MEDS ORDERED: PHENYLEPHRINE/PROMETH/CODEINE 5 ML ORAL.SYG PO PRN (00:15)
[2017-03-12] MEDS ORDERED: INSULIN ASPART 100 UNITS/ML SQ PRN (00:15)
[2017-03-12] MEDS ORDERED: MISC MED-CONVERTED FROM AMBULATORY (Ipratropium/Albuterol Sulfate (Duoneb 2.5-0.5 Mg/3 Ml IH SCH (00:15)
[2017-03-12] MEDS: ALBUTEROL SULFATE 2.5 MG/0.5 ML NEB SOLUTION NEB SCH ×6 (02:58→22:56)
[2017-03-12] MEDS: IPRATROPIUM BROMIDE 0.5 MG/2.5 ML NEB SOLUTION NEB SCH ×6 (02:58→22:56)
[2017-03-12 04:00] VITALS: BP 112/63
[2017-03-12 07:05] LABS: EOSINOPHILS % (AUTO) 0.03 % (1.0-6.0); HEMATOCRIT 26.6 % (41-53); HEMOGLOBIN 8.3 g/dL (13.5-17.5); LYMPHOCYTES # (AUTO) 0.6 K/uL (1.0-4.8); LYMPHOCYTES % (AUTO) 4.3 % (22.0-44.0); MEAN CORPUSCULAR HEMOGLOBIN 27.9 pg (26.0-34.0); MEAN CORPUSCULAR HGB CONC 31.2 G/dL (31.0-37.0); MEAN CORPUSCULAR VOLUME 89 fL (80-100); MONOCYTES # (AUTO) 0.5 K/uL (0.1-1.0); MONOCYTES % (AUTO) 3.7 % (2.0-9.0); PLATELET COUNT (AUTO) 145 K/uL (150-450); RED BLOOD CELL COUNT(AUTO) 2.97 MIL/uL (4.50-5.90); RED CELL DISTRIBUTION WIDTH 17.6 % (11.5-14.5); WHITE BLOOD COUNT (AUTO) 14.1 K/uL (4.5-11.0)
[2017-03-12 07:50] VITALS: BP 117/67
[2017-03-12 08:02] LABS: ANION GAP 5 mmol/L (8-16); CALCIUM, TOTAL 8.3 mg/dL (8.8-10.5); CARBON DIOXIDE 32 mmol/L (22-29); CHLORIDE 101 mmol/L (98-107); CREATINE KINASE, TOTAL 38 U/L (39-308); GLOMERULAR FILTR. RATE CALC 45 mL/min (>60); PHOSPHORUS 4.7 mg/dL (2.5-4.9); POTASSIUM 5.7 mmol/L (3.5-5.1); SODIUM SERUM 138 mmol/L (136-145); THYROID STIMULATING HORMONE 0.64 uIU/mL (0.36-3.74); UREA NITROGEN, BLOOD 52 mg/dL (7-18)
[2017-03-12 08:09] LABS: B-TYPE NATRIURETIC PEPTIDE 1600 pg/mL (0-100)
[2017-03-12] MEDS ORDERED: DENTURE ADHESIVE 68 GM CREAM DT PRN (08:15)
[2017-03-12] MEDS ORDERED: ASPIRIN 81 MG CHEWABLE TABLET PO SCH (09:00)
[2017-03-12] MEDS: TICAGRELOR 90 MG TABLET PO SCH ×2 (09:00→20:22)
[2017-03-12] MEDS: GABAPENTIN 300 MG CAPSULE PO SCH ×3 (09:28→20:23)
[2017-03-12] MEDS: HydrALAZINE HCL 25 MG TABLET PO SCH ×2 (09:28→20:22)
[2017-03-12] MEDS: ASCORBIC ACID 500 MG TABLET PO SCH (09:28)
[2017-03-12] MEDS: ALLOPURINOL 100 MG TABLET PO SCH (09:28)
[2017-03-12] MEDS: CARVEDILOL 6.25 MG TABLET PO SCH ×2 (09:28→20:23)
[2017-03-12] MEDS: DOXAZOSIN MESYLATE 1 MG TABLET PO SCH (09:29)
[2017-03-12] MEDS: PRAMIPEXOLE DI-HCL 0.25 MG TABLET PO SCH (09:30)
[2017-03-12] MEDS: SERTRALINE HCL 50 MG TABLET PO SCH (09:30)
[2017-03-12] MEDS: ISOSORBIDE MONONITRATE 60 MG ER TABLET PO SCH (09:34)
[2017-03-12 09:46] LABS: RBC MORPHOLOGY COMMENT ABNORMAL RBC MORPH
[2017-03-12] MEDS: INSULIN DETEMIR 100 UNITS/ML SQ SCH ×2 (09:46→21:17)
[2017-03-12 10:53] LABS: GLUCOSE COMMENT 1 Received Meds; GLUCOSE,POINT OF CARE 439 MG/DL (70-110)
[2017-03-12] MEDS ORDERED: SODIUM POLYSTYRENE SULFONATE 15 GM/60 ML SUSPENSION BOTTLE PO ONE ×2 (11:00→19:45)
[2017-03-12] MEDS ORDERED: DEXTROSE 50%-WATER 25 GM/50 ML SYRINGE IVP PRN (11:00)
[2017-03-12 11:18] VITALS: BP 101/66
[2017-03-12] MEDS: INSULIN ASPART 100 UNITS/ML SQ PRN ×3 (12:01→23:54)
[2017-03-12] MEDS ORDERED: INSULIN ASPART 100 UNITS/ML SQ ONE (12:45)
[2017-03-12 13:10] LABS: CREATINE KINASE, TOTAL 38 U/L (39-308)
[2017-03-12 14:28] LABS: GLUCOSE,POINT OF CARE 503 MG/DL (70-110)
[2017-03-12 16:00] VITALS: BP 109/63
[2017-03-12] MEDS: MethylPREDNISolone SOD SUCC 125 MG/2 ML VIAL IVP SCH ×2 (16:00→23:53)
[2017-03-12 16:07] LABS: GLUCOSE,POINT OF CARE 446 MG/DL (70-110)
[2017-03-12 16:35] LABS: BILIRUBIN,TOTAL 0.2 mg/dL (0.1-1.0); CALCIUM, TOTAL 7.9 mg/dL (8.8-10.5); CREATININE 1.8 mg/dL (0.60-1.30); MAGNESIUM 2.2 mg/dL (1.80-2.40); PHOSPHORUS 5.8 mg/dL (2.5-4.9); POTASSIUM 5.7 mmol/L (3.5-5.1); TOTAL PROTEIN, SERUM 5.4 g/dL (6.4-8.2)
[2017-03-12 16:39] LABS: ABG A-A DIFF O2 563.4 mmHg (10-20.0); ABG BASE EXCESS 6.7 mmol/L (-2.0-3.0); ABG HCO3 29.5 mmol/L (22.0-26.0); ABG OXYHEMOGLOBIN 94.5 % (94.0-100.0); ABG PCO2 64 mmHg (35-45); ABG PH 7.323 (7.35-7.450); ALLEN TEST, BLOOD GAS Positive; TEMPERATURE, FAHRENHEIT, BG 98.4 FAHREN (96.0-98.6)
[2017-03-12 16:46] LABS: HEMATOCRIT 26.1 % (41-53); MEAN CORPUSCULAR HEMOGLOBIN 27.5 pg (26.0-34.0); MEAN CORPUSCULAR HGB CONC 30.6 G/dL (31.0-37.0); MEAN CORPUSCULAR VOLUME 90 fL (80-100); PLATELET COUNT (AUTO) 160 K/uL (150-450); RED BLOOD CELL COUNT(AUTO) 2.91 MIL/uL (4.50-5.90); RED CELL DISTRIBUTION WIDTH 17.7 % (11.5-14.5); WHITE BLOOD COUNT (AUTO) 15.4 K/uL (4.5-11.0)
[2017-03-12] MEDS ORDERED: SODIUM CHLORIDE 0.9% 500 ML IV ONE ×2 (16:46→19:48)
[2017-03-12] MEDS ORDERED: SODIUM CHLORIDE 0.9% 250 ML IV ONE (16:52)
[2017-03-12] MEDS ORDERED: LIDOCAINE HCL/PF 1% 5 ML VIAL ONE (17:34)
[2017-03-12 17:45] LABS: ABG BASE EXCESS 5.6 mmol/L (-2.0-3.0); ABG HCO3 28.4 mmol/L (22.0-26.0); ABG OXYHEMOGLOBIN 90.3 % (94.0-100.0); ABG PCO2 67 mmHg (35-45); ABG PH 7.296 (7.35-7.450); TEMPERATURE, FAHRENHEIT, BG 98.4 FAHREN (96.0-98.6)
[2017-03-12 17:56] LABS: BAND NEUTROPHILS % (MANUAL) 3 % (1-5); LYMPHOCYTES % (MANUAL) 11 % (22-44); METAMYELOCYTES % 2 % (0-0); MYELOCYTES % 2 % (0-0); RBC MORPHOLOGY COMMENT ABNORMAL RBC MORPH; TOTAL CELLS COUNTED 100
[2017-03-12] MEDS: CefTRIAXone 1 GM/DEXTROSE 50 ML IV SCH (18:34)
[2017-03-12] MEDS ORDERED: PHENYLEPHRINE 200 MG/D5%-WATER 250 ML IV ONE (19:10)
[2017-03-12] MEDS ORDERED: NOREPINEPHRINE 4 MG/D5%-WATER 250 ML IV PRN ×2 (19:15→20:22)
[2017-03-12 19:30] LABS: ABG A-A DIFF O2 579.7 mmHg (10-20.0); ABG BASE EXCESS 6.8 mmol/L (-2.0-3.0); ABG HCO3 30.2 mmol/L (22.0-26.0); ABG OXYHEMOGLOBIN 95.5 % (94.0-100.0); ABG PCO2 37 mmHg (35-45); ABG PH 7.522 (7.35-7.450); TEMPERATURE, FAHRENHEIT, BG 98.6 FAHREN (96.0-98.6)
[2017-03-12] MEDS: NOREPINEPHRINE 4 MG/D5%-WATER 250 ML IV PRN (19:30)
[2017-03-12 20:00] VITALS: BP 112/70
[2017-03-12] MEDS: ASPIRIN 81 MG CHEWABLE TABLET PO SCH (20:21)
[2017-03-12] MEDS: BUMETANIDE 0.25 MG/ML 10 ML VIAL IVP SCH (20:22)
[2017-03-12] MEDS: MONTELUKAST SODIUM 10 MG TABLET PO SCH (20:23)
[2017-03-12] MEDS: ATORVASTATIN CALCIUM 20 MG TABLET PO SCH (20:23)
[2017-03-12] MEDS: NORTRIPTYLINE HCL 10 MG CAPSULE PO SCH (20:23)
[2017-03-12] MEDS: PROPOFOL 1000 MG/ISO-OSM 100 ML IV PRN (21:20)
[2017-03-12] MEDS ORDERED: FentaNYL CITRATE PF 500 MCG in DEXTROSE 5%-WATER 90 ML IV PRN (21:26)
[2017-03-12] MEDS ORDERED: PROPOFOL 1000 MG/ISO-OSM 100 ML IV ONE (21:31)
[2017-03-12 21:48] LABS: APPEARANCE,URINE CLOUDY (CLEAR); GLUCOSE, URINE (UA) 100 mg/dL (NEGATIVE); KETONES,URINE TRACE mg/dL (NEGATIVE); LEUKOCYTE ESTERASE ,URINE SMALL (NEGATIVE); OCCULT BLOOD,URINE LARGE (NEGATIVE); PROTEIN,URINE POS 1+ (NEGATIVE)
[2017-03-12] MEDS: BUDESONIDE 0.5 MG/2 ML NEB SOLUTION NEB SCH (21:54)
[2017-03-12 22:13] LABS: RBC,URINE 51-100 /HPF (0-2)
[2017-03-12 22:59] LABS: ABG A-A DIFF O2 591.1 mmHg (10-20.0); ABG BASE EXCESS 6.7 mmol/L (-2.0-3.0); ABG HCO3 29.9 mmol/L (22.0-26.0); ABG PCO2 47 mmHg (35-45); ALLEN TEST, BLOOD GAS POSITIVE; TEMPERATURE, FAHRENHEIT, BG 98.6 FAHREN (96.0-98.6)
[2017-03-12] MEDS: PHENYLEPHRINE 200 MG/D5%-WATER 250 ML IV PRN (23:34)
[2017-03-13] VITALS: BP 122/60
[2017-03-13 01:47] LABS: GLUCOSE,POINT OF CARE 333 MG/DL (70-110)
[2017-03-13 01:47] LABS: GLUCOSE COMMENT 1 Received Meds; GLUCOSE,POINT OF CARE 311 MG/DL (70-110)
[2017-03-13 01:47] LABS: GLUCOSE,POINT OF CARE 354 MG/DL (70-110)
[2017-03-13] MEDS: NOREPINEPHRINE 4 MG/D5%-WATER 250 ML IV PRN (01:55)
[2017-03-13] MEDS: ALBUTEROL SULFATE 2.5 MG/0.5 ML NEB SOLUTION NEB SCH ×6 (03:09→22:56)
[2017-03-13] MEDS: IPRATROPIUM BROMIDE 0.5 MG/2.5 ML NEB SOLUTION NEB SCH ×6 (03:09→22:56)
[2017-03-13 04:00] VITALS: BP 123/62
[2017-03-13] MEDS: INSULIN ASPART 100 UNITS/ML SQ PRN ×3 (05:16→18:45)
[2017-03-13 05:57] LABS: EOSINOPHILS % (AUTO) 0.01 % (1.0-6.0); HEMATOCRIT 21.9 % (41-53); LYMPHOCYTES # (AUTO) 0.5 K/uL (1.0-4.8); LYMPHOCYTES % (AUTO) 2.4 % (22.0-44.0); MEAN CORPUSCULAR HEMOGLOBIN 28.2 pg (26.0-34.0); MEAN CORPUSCULAR VOLUME 88 fL (80-100); MONOCYTES # (AUTO) 0.4 K/uL (0.1-1.0); MONOCYTES % (AUTO) 2.1 % (2.0-9.0); NEUTROPHILS # (AUTO) 18.7 K/uL (1.8-7.7); PLATELET COUNT (AUTO) 177 K/uL (150-450); RED BLOOD CELL COUNT(AUTO) 2.49 MIL/uL (4.50-5.90); RED CELL DISTRIBUTION WIDTH 17.4 % (11.5-14.5); WHITE BLOOD COUNT (AUTO) 19.5 K/uL (4.5-11.0)
[2017-03-13 06:08] LABS: NEUTROPHILS % (AUTO) 95.5 % (40.0-70.0)
[2017-03-13 06:12] LABS: ALBUMIN 1.8 g/dL (3.4-5.0); BILIRUBIN,TOTAL 0.3 mg/dL (0.1-1.0); CALCIUM, TOTAL 7.4 mg/dL (8.8-10.5); CREATININE 1.74 mg/dL (0.60-1.30); PHOSPHORUS 3.7 mg/dL (2.5-4.9); POTASSIUM 3.7 mmol/L (3.5-5.1); TOTAL PROTEIN, SERUM 4.7 g/dL (6.4-8.2)
[2017-03-13 06:47] LABS: GLUCOSE COMMENT 1 Received Meds; GLUCOSE,POINT OF CARE 290 MG/DL (70-110)
[2017-03-13] MEDS: PROPOFOL 1000 MG/ISO-OSM 100 ML IV PRN (07:32)
[2017-03-13] MEDS: BUDESONIDE 0.5 MG/2 ML NEB SOLUTION NEB SCH ×2 (07:44→20:07)
[2017-03-13 08:00] VITALS: BP 140/65
[2017-03-13 08:18] LABS: RBC MORPHOLOGY COMMENT ABNORMAL RBC MORPH
[2017-03-13 08:48] LABS: TEMPERATURE, FAHRENHEIT, BG 98.6 FAHREN (96.0-98.6)
[2017-03-13 08:51] LABS: ABG A-A DIFF O2 329.6 mmHg (10-20.0); ABG BASE EXCESS 8.9 mmol/L (-2.0-3.0); ABG HCO3 32.1 mmol/L (22.0-26.0); ABG OXYHEMOGLOBIN 97.5 % (94.0-100.0); ABG PCO2 35 mmHg (35-45); ABG PH 7.564 (7.35-7.450)
[2017-03-13 08:52] LABS: ALLEN TEST, BLOOD GAS Positive
[2017-03-13] MEDS: ISOSORBIDE MONONITRATE 60 MG ER TABLET PO SCH (09:00)
[2017-03-13] MEDS: HydrALAZINE HCL 25 MG TABLET PO SCH ×2 (09:00→20:55)
[2017-03-13] MEDS: CARVEDILOL 6.25 MG TABLET PO SCH ×3 (09:00→21:00)
[2017-03-13] MEDS ORDERED: ACETAMINOPHEN 325 MG TABLET PO PRN (10:30)
[2017-03-13] MEDS ORDERED: CefTRIAXone 1 GM/DEXTROSE 50 ML IV SCH (10:30)
[2017-03-13] MEDS: DOXAZOSIN MESYLATE 1 MG TABLET PO SCH (10:38)
[2017-03-13] MEDS: ASPIRIN 81 MG CHEWABLE TABLET PO SCH (10:39)
[2017-03-13] MEDS: TICAGRELOR 90 MG TABLET PO SCH ×2 (10:40→20:51)
[2017-03-13] MEDS: ALLOPURINOL 100 MG TABLET PO SCH (10:40)
[2017-03-13] MEDS: SERTRALINE HCL 50 MG TABLET PO SCH (10:40)
[2017-03-13] MEDS: PRAMIPEXOLE DI-HCL 0.25 MG TABLET PO SCH (10:40)
[2017-03-13] MEDS: ASCORBIC ACID 500 MG TABLET PO SCH (10:40)
[2017-03-13] MEDS: GABAPENTIN 300 MG CAPSULE PO SCH ×3 (10:40→20:51)
[2017-03-13] MEDS: BUMETANIDE 0.25 MG/ML 10 ML VIAL IVP SCH ×2 (10:41→20:51)
[2017-03-13] MEDS: INSULIN DETEMIR 100 UNITS/ML SQ SCH ×2 (10:42→20:54)
[2017-03-13] MEDS ORDERED: VANCOMYCIN HCL 1 GM/D5% WATER 200 ML IV ONE ×2 (11:00→18:00)
[2017-03-13] MEDS: MethylPREDNISolone SOD SUCC 40 MG/ML VIAL IVP SCH ×2 (11:52→16:24)
[2017-03-13 12:00] VITALS: BP 113/48
[2017-03-13 12:08] LABS: GLUCOSE COMMENT 1 Received Meds; GLUCOSE,POINT OF CARE 171 MG/DL (70-110)
[2017-03-13] MEDS: PANTOPRAZOLE SODIUM 40 MG/VIAL IVP SCH (14:36)
[2017-03-13 16:00] VITALS: BP 102/55
[2017-03-13] MEDS: CefTRIAXone 1 GM/DEXTROSE 50 ML IV SCH (16:23)
[2017-03-13 20:00] VITALS: BP 127/57
[2017-03-13] MEDS ORDERED: SODIUM CHLORIDE 0.9% 250 ML IV ONE (20:50)
[2017-03-13] MEDS: MONTELUKAST SODIUM 10 MG TABLET PO SCH (20:51)
[2017-03-13] MEDS: NORTRIPTYLINE HCL 10 MG CAPSULE PO SCH (20:51)
[2017-03-13] MEDS: ATORVASTATIN CALCIUM 20 MG TABLET PO SCH (20:51)
[2017-03-14] VITALS (13 sets, daily range): BP systolic 100–152; BP diastolic 45–76
[2017-03-14] MEDS ORDERED: AMIODARONE HCL 360 MG in DEXTROSE 5%-WATER 242.8 ML IV ONE ×2
[2017-03-14] MEDS: MethylPREDNISolone SOD SUCC 40 MG/ML VIAL IVP SCH ×4 (00:10→21:33)
[2017-03-14] MEDS: INSULIN ASPART 100 UNITS/ML SQ PRN ×3 (00:49→12:37)
[2017-03-14] MEDS ORDERED: SODIUM CHLORIDE 0.9% 500 ML IV ONE (02:21)
[2017-03-14] MEDS: ALBUTEROL SULFATE 2.5 MG/0.5 ML NEB SOLUTION NEB SCH ×6 (03:40→23:20)
[2017-03-14] MEDS: IPRATROPIUM BROMIDE 0.5 MG/2.5 ML NEB SOLUTION NEB SCH ×6 (03:41→23:20)
[2017-03-14 04:59] LABS: CALCIUM, TOTAL 7.3 mg/dL (8.8-10.5); CREATININE 1.74 mg/dL (0.60-1.30)
[2017-03-14 05:02] LABS: POTASSIUM 2.6 mmol/L (3.5-5.1)
[2017-03-14] MEDS ORDERED: AMIODARONE HCL 540 MG in DEXTROSE 5%-WATER 239.2 ML IV ONE (06:00)
[2017-03-14] MEDS: POTASSIUM CHL 10 MEQ/WATER 50 ML IV SCH ×4 (06:10→10:28)
[2017-03-14] MEDS: BUDESONIDE 0.5 MG/2 ML NEB SOLUTION NEB SCH ×2 (07:31→19:06)
[2017-03-14 07:41] LABS: EOSINOPHILS % (AUTO) 0 % (1.0-6.0); HEMATOCRIT 23.7 % (41-53); HEMOGLOBIN 7.4 g/dL (13.5-17.5); LYMPHOCYTES # (AUTO) 0.4 K/uL (1.0-4.8); LYMPHOCYTES % (AUTO) 2.7 % (22.0-44.0); MEAN CORPUSCULAR HEMOGLOBIN 27.6 pg (26.0-34.0); MEAN CORPUSCULAR HGB CONC 31.3 G/dL (31.0-37.0); MEAN CORPUSCULAR VOLUME 88 fL (80-100); MONOCYTES # (AUTO) 0.5 K/uL (0.1-1.0); MONOCYTES % (AUTO) 3.5 % (2.0-9.0); NEUTROPHILS # (AUTO) 12.6 K/uL (1.8-7.7); PLATELET COUNT (AUTO) 117 K/uL (150-450); RED BLOOD CELL COUNT(AUTO) 2.68 MIL/uL (4.50-5.90); RED CELL DISTRIBUTION WIDTH 16.4 % (11.5-14.5); WHITE BLOOD COUNT (AUTO) 13.4 K/uL (4.5-11.0)
[2017-03-14 07:58] LABS: NEUTROPHILS % (AUTO) 93.9 % (40.0-70.0)
[2017-03-14 09:02] LABS: GLUCOSE COMMENT 1 Received Meds; GLUCOSE,POINT OF CARE 171 MG/DL (70-110)
[2017-03-14 09:02] LABS: GLUCOSE COMMENT 1 Received Meds; GLUCOSE,POINT OF CARE 193 MG/DL (70-110)
[2017-03-14 09:07] LABS: GLUCOSE COMMENT 1 Received Meds; GLUCOSE,POINT OF CARE 220 MG/DL (70-110)
[2017-03-14 09:07] LABS: GLUCOSE COMMENT 1 Received Meds; GLUCOSE,POINT OF CARE 271 MG/DL (70-110)
[2017-03-14] MEDS: VANCOMYCIN HCL 1.5 GM in DEXTROSE 5%-WATER 250 ML IV SCH (09:30)
[2017-03-14] MEDS: PANTOPRAZOLE SODIUM 40 MG/VIAL IVP SCH (09:49)
[2017-03-14] MEDS: POTASSIUM CHLORIDE 10% 40 MEQ/30 ML LIQUID UDCUP NG SCH ×2 (09:49→16:13)
[2017-03-14] MEDS: BUMETANIDE 0.25 MG/ML 10 ML VIAL IVP SCH ×2 (09:50→21:32)
[2017-03-14] MEDS: ALLOPURINOL 100 MG TABLET PO SCH (09:51)
[2017-03-14] MEDS: SERTRALINE HCL 50 MG TABLET PO SCH (09:51)
[2017-03-14] MEDS: TICAGRELOR 90 MG TABLET PO SCH ×2 (09:51→21:34)
[2017-03-14] MEDS: HydrALAZINE HCL 25 MG TABLET PO SCH ×2 (09:52→21:34)
[2017-03-14] MEDS: CARVEDILOL 6.25 MG TABLET PO SCH ×2 (09:53→21:34)
[2017-03-14] MEDS: ASCORBIC ACID 500 MG TABLET PO SCH (09:54)
[2017-03-14] MEDS: PRAMIPEXOLE DI-HCL 0.25 MG TABLET PO SCH (09:55)
[2017-03-14] MEDS: ISOSORBIDE MONONITRATE 60 MG ER TABLET PO SCH (10:02)
[2017-03-14] MEDS: ASPIRIN 81 MG CHEWABLE TABLET PO SCH (10:02)
[2017-03-14] MEDS: DOXAZOSIN MESYLATE 1 MG TABLET PO SCH (10:03)
[2017-03-14] MEDS: INSULIN DETEMIR 100 UNITS/ML SQ SCH ×2 (10:06→21:35)
[2017-03-14] MEDS: GABAPENTIN 300 MG CAPSULE PO SCH ×3 (12:04→21:34)
[2017-03-14 12:48] LABS: GLUCOSE,POINT OF CARE 256 MG/DL (70-110)
[2017-03-14 14:48] LABS: ABG A-A DIFF O2 137.9 mmHg (10-20.0); ABG BASE EXCESS 8.5 mmol/L (-2.0-3.0); ABG HCO3 31.6 mmol/L (22.0-26.0); ABG OXYHEMOGLOBIN 96.1 % (94.0-100.0); ABG PCO2 39 mmHg (35-45); ABG PH 7.526 (7.35-7.450); TEMPERATURE, FAHRENHEIT, BG 98.6 FAHREN (96.0-98.6)
[2017-03-14 14:50] LABS: ALLEN TEST, BLOOD GAS Positive
[2017-03-14] MEDS: CefTRIAXone 1 GM/DEXTROSE 50 ML IV SCH (16:12)
[2017-03-14] MEDS ORDERED: POTASSIUM CHLORIDE 10% 40 MEQ/30 ML LIQUID UDCUP NG ONE (20:45)
[2017-03-14] MEDS ORDERED: SODIUM CHLORIDE 0.9% 250 ML IV ONE (21:14)
[2017-03-14] MEDS: ATORVASTATIN CALCIUM 20 MG TABLET PO SCH (21:34)
[2017-03-14] MEDS: MONTELUKAST SODIUM 10 MG TABLET PO SCH (21:35)
[2017-03-14] MEDS: NORTRIPTYLINE HCL 10 MG CAPSULE PO SCH (21:35)
[2017-03-15] VITALS (7 sets, daily range): BP systolic 93–140; BP diastolic 45–76
[2017-03-15] MEDS: INSULIN ASPART 100 UNITS/ML SQ PRN ×4 (00:29→17:41)
[2017-03-15] MEDS: AMIODARONE HCL 750 MG in DEXTROSE 5%-WATER 485 ML IV SCH (00:31)
[2017-03-15] MEDS: IPRATROPIUM BROMIDE 0.5 MG/2.5 ML NEB SOLUTION NEB SCH ×6 (03:38→22:41)
[2017-03-15] MEDS: ALBUTEROL SULFATE 2.5 MG/0.5 ML NEB SOLUTION NEB SCH ×6 (03:38→22:41)
[2017-03-15 05:25] LABS: CALCIUM, TOTAL 7.2 mg/dL (8.8-10.5); CREATININE 1.68 mg/dL (0.60-1.30)
[2017-03-15 05:38] LABS: GLUCOSE COMMENT 1 Received Meds; GLUCOSE,POINT OF CARE 245 MG/DL (70-110)
[2017-03-15 05:38] LABS: GLUCOSE COMMENT 1 Received Meds; GLUCOSE,POINT OF CARE 243 MG/DL (70-110)
[2017-03-15 05:38] LABS: GLUCOSE COMMENT 1 Received Meds; GLUCOSE,POINT OF CARE 222 MG/DL (70-110)
[2017-03-15 05:38] LABS: GLUCOSE COMMENT 1 Received Meds; GLUCOSE,POINT OF CARE 238 MG/DL (70-110)
[2017-03-15 06:19] LABS: POTASSIUM 2.7 mmol/L (3.5-5.1)
[2017-03-15 06:44] LABS: EOSINOPHILS % (AUTO) 0.01 % (1.0-6.0); HEMATOCRIT 21.9 % (41-53); HEMOGLOBIN 7.1 g/dL (13.5-17.5); LYMPHOCYTES # (AUTO) 0.3 K/uL (1.0-4.8); LYMPHOCYTES % (AUTO) 2.1 % (22.0-44.0); MEAN CORPUSCULAR HEMOGLOBIN 28.2 pg (26.0-34.0); MEAN CORPUSCULAR HGB CONC 32.3 G/dL (31.0-37.0); MEAN CORPUSCULAR VOLUME 87 fL (80-100); MONOCYTES # (AUTO) 0.5 K/uL (0.1-1.0); MONOCYTES % (AUTO) 3.3 % (2.0-9.0); NEUTROPHILS # (AUTO) 14.7 K/uL (1.8-7.7); PLATELET COUNT (AUTO) 129 K/uL (150-450); WHITE BLOOD COUNT (AUTO) 15.5 K/uL (4.5-11.0)
[2017-03-15] MEDS: POTASSIUM CHL 10 MEQ/WATER 50 ML IV SCH ×4 (06:54→10:13)
[2017-03-15 06:58] LABS: NEUTROPHILS % (AUTO) 94.6 % (40.0-70.0)
[2017-03-15 07:47] LABS: RBC MORPHOLOGY COMMENT ABNORMAL RBC MORPH
[2017-03-15] MEDS: BUDESONIDE 0.5 MG/2 ML NEB SOLUTION NEB SCH ×2 (07:55→19:28)
[2017-03-15] MEDS ORDERED: POTASSIUM CHLORIDE 10% 40 MEQ/30 ML LIQUID UDCUP NG ONE ×3 (08:00→12:00)
[2017-03-15] MEDS: MethylPREDNISolone SOD SUCC 40 MG/ML VIAL IVP SCH ×2 (08:05→20:17)
[2017-03-15] MEDS: VANCOMYCIN HCL 1.5 GM in DEXTROSE 5%-WATER 250 ML IV SCH (08:25)
[2017-03-15] MEDS: TICAGRELOR 90 MG TABLET PO SCH ×2 (09:48→20:17)
[2017-03-15] MEDS: DOXAZOSIN MESYLATE 1 MG TABLET PO SCH (09:48)
[2017-03-15] MEDS: CARVEDILOL 6.25 MG TABLET PO SCH ×2 (09:48→20:17)
[2017-03-15] MEDS: PRAMIPEXOLE DI-HCL 0.25 MG TABLET PO SCH (09:49)
[2017-03-15] MEDS: ALLOPURINOL 100 MG TABLET PO SCH (09:49)
[2017-03-15] MEDS: ASPIRIN 81 MG CHEWABLE TABLET PO SCH (09:50)
[2017-03-15] MEDS: SERTRALINE HCL 50 MG TABLET PO SCH (09:50)
[2017-03-15] MEDS: ISOSORBIDE MONONITRATE 60 MG ER TABLET PO SCH (09:51)
[2017-03-15] MEDS: ASCORBIC ACID 500 MG TABLET PO SCH (09:51)
[2017-03-15] MEDS: INSULIN DETEMIR 100 UNITS/ML SQ SCH ×2 (09:57→20:33)
[2017-03-15 10:06] LABS: ABG A-A DIFF O2 136.1 mmHg (10-20.0); ABG BASE EXCESS 10.7 mmol/L (-2.0-3.0); ABG HCO3 33.6 mmol/L (22.0-26.0); ABG OXYHEMOGLOBIN 95.7 % (94.0-100.0); ABG PCO2 41 mmHg (35-45); ABG PH 7.526 (7.35-7.450); ALLEN TEST, BLOOD GAS POS; TEMPERATURE, FAHRENHEIT, BG 98.7 FAHREN (96.0-98.6)
[2017-03-15] MEDS: HydrALAZINE HCL 25 MG TABLET PO SCH ×2 (10:18→20:17)
[2017-03-15] MEDS: PANTOPRAZOLE SODIUM 40 MG/VIAL IVP SCH (10:18)
[2017-03-15] MEDS: GABAPENTIN 300 MG CAPSULE PO SCH ×3 (10:19→20:17)
[2017-03-15 13:52] LABS: GLUCOSE COMMENT 1 Received Meds; GLUCOSE,POINT OF CARE 236 MG/DL (70-110)
[2017-03-15] MEDS: CefTRIAXone 1 GM/DEXTROSE 50 ML IV SCH (16:14)
[2017-03-15 16:44] LABS: CALCIUM, TOTAL 7.2 mg/dL (8.8-10.5); CREATININE 1.66 mg/dL (0.60-1.30); POTASSIUM 3.5 mmol/L (3.5-5.1)
[2017-03-15] MEDS ORDERED: SODIUM CHLORIDE 0.9% 250 ML IV ONE (20:15)
[2017-03-15] MEDS: ATORVASTATIN CALCIUM 20 MG TABLET PO SCH (20:17)
[2017-03-15] MEDS: MONTELUKAST SODIUM 10 MG TABLET PO SCH (20:17)
[2017-03-15] MEDS: NORTRIPTYLINE HCL 10 MG CAPSULE PO SCH (20:17)
[2017-03-16] VITALS (16 sets, daily range): BP systolic 99–127; BP diastolic 53–64
[2017-03-16] MEDS: INSULIN ASPART 100 UNITS/ML SQ PRN ×4 (01:12→18:30)
[2017-03-16] MEDS: AMIODARONE HCL 750 MG in DEXTROSE 5%-WATER 485 ML IV SCH (01:13)
[2017-03-16] MEDS: ALBUTEROL SULFATE 2.5 MG/0.5 ML NEB SOLUTION NEB SCH ×6 (03:17→23:23)
[2017-03-16] MEDS: IPRATROPIUM BROMIDE 0.5 MG/2.5 ML NEB SOLUTION NEB SCH ×6 (03:17→23:23)
[2017-03-16 05:49] LABS: BASOPHILS # (AUTO) 0.04 K/uL (0.00-0.20); BASOPHILS % (AUTO) 0.3 % (0.0-2.0); EOSINOPHILS % (AUTO) 0 % (1.0-6.0); HEMATOCRIT 21.6 % (41-53); LYMPHOCYTES # (AUTO) 0.4 K/uL (1.0-4.8); LYMPHOCYTES % (AUTO) 2.8 % (22.0-44.0); MEAN CORPUSCULAR HEMOGLOBIN 27.6 pg (26.0-34.0); MEAN CORPUSCULAR HGB CONC 31.6 G/dL (31.0-37.0); MEAN CORPUSCULAR VOLUME 87 fL (80-100); MONOCYTES # (AUTO) 0.4 K/uL (0.1-1.0); MONOCYTES % (AUTO) 2.3 % (2.0-9.0); NEUTROPHILS # (AUTO) 14.7 K/uL (1.8-7.7); PLATELET COUNT (AUTO) 118 K/uL (150-450); RED BLOOD CELL COUNT(AUTO) 2.47 MIL/uL (4.50-5.90); RED CELL DISTRIBUTION WIDTH 17.5 % (11.5-14.5); WHITE BLOOD COUNT (AUTO) 15.6 K/uL (4.5-11.0)
[2017-03-16 05:53] LABS: HEMOGLOBIN 6.8 g/dL (13.5-17.5); NEUTROPHILS % (AUTO) 94.6 % (40.0-70.0)
[2017-03-16 06:08] LABS: CALCIUM, TOTAL 7.3 mg/dL (8.8-10.5); CREATININE 1.6 mg/dL (0.60-1.30); MAGNESIUM 2.1 mg/dL (1.80-2.40); PHOSPHORUS 3.1 mg/dL (2.5-4.9); POTASSIUM 3.1 mmol/L (3.5-5.1)
[2017-03-16 06:09] LABS: RBC MORPHOLOGY COMMENT ABNORMAL RBC MORPH
[2017-03-16] MEDS: POTASSIUM CHL 10 MEQ/WATER 50 ML IV SCH ×4 (07:04→08:49)
[2017-03-16] MEDS: BUDESONIDE 0.5 MG/2 ML NEB SOLUTION NEB SCH ×2 (07:30→19:32)
[2017-03-16] MEDS ORDERED: POTASSIUM CHLORIDE 10% 40 MEQ/30 ML LIQUID UDCUP NG ONE (08:00)
[2017-03-16] MEDS: VANCOMYCIN HCL 1.5 GM in DEXTROSE 5%-WATER 250 ML IV SCH (08:04)
[2017-03-16] MEDS: ATORVASTATIN CALCIUM 20 MG TABLET PO SCH (08:05)
[2017-03-16] MEDS: MethylPREDNISolone SOD SUCC 40 MG/ML VIAL IVP SCH ×2 (08:05→21:56)
[2017-03-16] MEDS ORDERED: SODIUM CHLORIDE 0.9% 250 ML IV ONE (08:05)
[2017-03-16] MEDS: PANTOPRAZOLE SODIUM 40 MG/VIAL IVP SCH (08:05)
[2017-03-16] MEDS: ASCORBIC ACID 500 MG TABLET PO SCH (08:06)
[2017-03-16] MEDS: ALLOPURINOL 100 MG TABLET PO SCH (08:06)
[2017-03-16] MEDS: HydrALAZINE HCL 25 MG TABLET PO SCH ×2 (08:06→21:00)
[2017-03-16] MEDS: GABAPENTIN 300 MG CAPSULE PO SCH ×3 (08:06→21:56)
[2017-03-16] MEDS: SERTRALINE HCL 50 MG TABLET PO SCH (08:06)
[2017-03-16] MEDS: ISOSORBIDE MONONITRATE 60 MG ER TABLET PO SCH (08:06)
[2017-03-16] MEDS: DOXAZOSIN MESYLATE 1 MG TABLET PO SCH (08:06)
[2017-03-16] MEDS: CARVEDILOL 6.25 MG TABLET PO SCH ×2 (08:07→21:56)
[2017-03-16] MEDS: ASPIRIN 81 MG CHEWABLE TABLET PO SCH (08:07)
[2017-03-16] MEDS: TICAGRELOR 90 MG TABLET PO SCH ×2 (08:07→21:56)
[2017-03-16] MEDS: PRAMIPEXOLE DI-HCL 0.25 MG TABLET PO SCH (08:09)
[2017-03-16 08:13] LABS: GLUCOSE COMMENT 1 Received Meds; GLUCOSE,POINT OF CARE 237 MG/DL (70-110)
[2017-03-16 08:13] LABS: GLUCOSE,POINT OF CARE 227 MG/DL (70-110)
[2017-03-16 08:13] LABS: GLUCOSE,POINT OF CARE 242 MG/DL (70-110)
[2017-03-16 08:17] LABS: GLUCOSE COMMENT 1 Received Meds; GLUCOSE,POINT OF CARE 195 MG/DL (70-110)
[2017-03-16] MEDS: OxyCODONE HCL/ACETAMINOPHEN 5-325 MG TABLET PO PRN ×2 (09:35→15:48)
[2017-03-16] MEDS: INSULIN DETEMIR 100 UNITS/ML SQ SCH ×2 (09:37→21:58)
[2017-03-16] MEDS: PHENYLEPHRINE 200 MG/D5%-WATER 250 ML IV PRN (10:46)
[2017-03-16 11:52] LABS: ABG PCO2 42 mmHg (35-45); ABG PH 7.538 (7.35-7.450); ALLEN TEST, BLOOD GAS Positive; TEMPERATURE, FAHRENHEIT, BG 98.6 FAHREN (96.0-98.6)
[2017-03-16 11:53] LABS: ABG BASE EXCESS 12.7 mmol/L (-2.0-3.0); ABG HCO3 35.3 mmol/L (22.0-26.0)
[2017-03-16 11:54] LABS: ABG OXYHEMOGLOBIN 94.9 % (94.0-100.0)
[2017-03-16 11:55] LABS: ABG A-A DIFF O2 137.2 mmHg (10-20.0)
[2017-03-16] MEDS: CefTRIAXone 1 GM/DEXTROSE 50 ML IV SCH (15:48)
[2017-03-16] MEDS: NORTRIPTYLINE HCL 10 MG CAPSULE PO SCH (21:57)
[2017-03-16] MEDS: MONTELUKAST SODIUM 10 MG TABLET PO SCH (21:57)
[2017-03-17] VITALS (14 sets, daily range): BP systolic 99–127; BP diastolic 47–64
[2017-03-17] MEDS: INSULIN ASPART 100 UNITS/ML SQ PRN ×4 (00:47→17:41)
[2017-03-17] MEDS: ALBUTEROL SULFATE 2.5 MG/0.5 ML NEB SOLUTION NEB SCH ×6 (03:55→23:02)
[2017-03-17] MEDS: IPRATROPIUM BROMIDE 0.5 MG/2.5 ML NEB SOLUTION NEB SCH ×6 (03:55→23:02)
[2017-03-17 05:22] LABS: GLUCOSE COMMENT 1 Received Meds; GLUCOSE,POINT OF CARE 204 MG/DL (70-110)
[2017-03-17 05:22] LABS: GLUCOSE,POINT OF CARE 201 MG/DL (70-110)
[2017-03-17 05:31] LABS: CALCIUM, TOTAL 7.4 mg/dL (8.8-10.5); CREATININE 1.73 mg/dL (0.60-1.30); MAGNESIUM 2.3 mg/dL (1.80-2.40); PHOSPHORUS 3.3 mg/dL (2.5-4.9)
[2017-03-17 05:32] LABS: GLUCOSE,POINT OF CARE 209 MG/DL (70-110)
[2017-03-17 06:29] LABS: HEMATOCRIT 22.3 % (41-53); MEAN CORPUSCULAR HEMOGLOBIN 27.6 pg (26.0-34.0); MEAN CORPUSCULAR HGB CONC 30.9 G/dL (31.0-37.0); MEAN CORPUSCULAR VOLUME 89 fL (80-100); PLATELET COUNT (AUTO) 118 K/uL (150-450); RED CELL DISTRIBUTION WIDTH 17.2 % (11.5-14.5); WHITE BLOOD COUNT (AUTO) 15.6 K/uL (4.5-11.0)
[2017-03-17 06:37] LABS: HEMOGLOBIN 6.9 g/dL (13.5-17.5)
[2017-03-17 07:12] LABS: GLUCOSE,POINT OF CARE 212 MG/DL (70-110)
[2017-03-17] MEDS: BUDESONIDE 0.5 MG/2 ML NEB SOLUTION NEB SCH ×2 (07:58→19:50)
[2017-03-17] MEDS: VANCOMYCIN HCL 1.5 GM in DEXTROSE 5%-WATER 250 ML IV SCH (08:39)
[2017-03-17] MEDS: ALLOPURINOL 100 MG TABLET PO SCH (08:40)
[2017-03-17] MEDS: PANTOPRAZOLE SODIUM 40 MG/VIAL IVP SCH (08:40)
[2017-03-17] MEDS: ASPIRIN 81 MG CHEWABLE TABLET PO SCH (08:40)
[2017-03-17] MEDS: ATORVASTATIN CALCIUM 20 MG TABLET PO SCH (08:40)
[2017-03-17] MEDS: MethylPREDNISolone SOD SUCC 40 MG/ML VIAL IVP SCH ×2 (08:41→21:15)
[2017-03-17] MEDS: PRAMIPEXOLE DI-HCL 0.25 MG TABLET PO SCH (08:41)
[2017-03-17] MEDS: ASCORBIC ACID 500 MG TABLET PO SCH (08:42)
[2017-03-17] MEDS: DOXAZOSIN MESYLATE 1 MG TABLET PO SCH (08:42)
[2017-03-17] MEDS: TICAGRELOR 90 MG TABLET PO SCH ×2 (08:42→21:15)
[2017-03-17] MEDS: GABAPENTIN 300 MG CAPSULE PO SCH ×3 (08:42→21:16)
[2017-03-17] MEDS: CARVEDILOL 6.25 MG TABLET PO SCH ×2 (08:44→21:15)
[2017-03-17] MEDS: ISOSORBIDE MONONITRATE 60 MG ER TABLET PO SCH (08:44)
[2017-03-17] MEDS: INSULIN DETEMIR 100 UNITS/ML SQ SCH ×2 (08:49→21:17)
[2017-03-17] MEDS: SERTRALINE HCL 50 MG TABLET PO SCH (08:51)
[2017-03-17] MEDS: HydrALAZINE HCL 25 MG TABLET PO SCH ×2 (09:00→21:15)
[2017-03-17 09:12] LABS: BAND NEUTROPHILS % (MANUAL) 7 % (1-5); LYMPHOCYTES % (MANUAL) 4 % (22-44); RBC MORPHOLOGY COMMENT ABNORMAL R; TOTAL CELLS COUNTED 100
[2017-03-17] MEDS ORDERED: SODIUM CHLORIDE 0.9% 250 ML IV ONE ×2 (11:15)
[2017-03-17] MEDS ORDERED: SODIUM CHLORIDE 0.9% 500 ML IV ONE (12:59)
[2017-03-17 15:32] LABS: GLUCOSE COMMENT 1 Received Meds; GLUCOSE,POINT OF CARE 233 MG/DL (70-110)
[2017-03-17 15:32] LABS: GLUCOSE,POINT OF CARE 196 MG/DL (70-110)
[2017-03-17 15:37] LABS: GLUCOSE COMMENT 1 Received Meds; GLUCOSE,POINT OF CARE 227 MG/DL (70-110)
[2017-03-17 15:37] LABS: GLUCOSE COMMENT 1 Received Meds; GLUCOSE,POINT OF CARE 234 MG/DL (70-110)
[2017-03-17 16:18] LABS: HEMATOCRIT 24.6 % (41-53); HEMOGLOBIN 7.7 g/dL (13.5-17.5)
[2017-03-17] MEDS: CefTRIAXone 1 GM/DEXTROSE 50 ML IV SCH (16:39)
[2017-03-17] MEDS: MONTELUKAST SODIUM 10 MG TABLET PO SCH (21:16)
[2017-03-17] MEDS: NORTRIPTYLINE HCL 10 MG CAPSULE PO SCH (21:16)
[2017-03-18] VITALS: BP 98/45
[2017-03-18] MEDS: INSULIN ASPART 100 UNITS/ML SQ PRN ×5 (01:21→20:51)
[2017-03-18 03:17] LABS: GLUCOSE COMMENT 1 Received Meds; GLUCOSE,POINT OF CARE 224 MG/DL (70-110)
[2017-03-18] MEDS: ALBUTEROL SULFATE 2.5 MG/0.5 ML NEB SOLUTION NEB SCH ×6 (03:20→23:31)
[2017-03-18] MEDS: IPRATROPIUM BROMIDE 0.5 MG/2.5 ML NEB SOLUTION NEB SCH ×6 (03:20→23:31)
[2017-03-18 04:00] VITALS: BP 103/63
[2017-03-18] MEDS ORDERED: SODIUM CHLORIDE 0.9% 250 ML IV ONE ×2 (04:43→20:23)
[2017-03-18 05:19] LABS: CALCIUM, TOTAL 7.5 mg/dL (8.8-10.5); CREATININE 1.69 mg/dL (0.60-1.30)
[2017-03-18 07:13] LABS: GLUCOSE,POINT OF CARE 182 MG/DL (70-110)
[2017-03-18] MEDS: BUDESONIDE 0.5 MG/2 ML NEB SOLUTION NEB SCH ×2 (07:33→19:31)
[2017-03-18 08:00] VITALS: BP 119/62
[2017-03-18 09:28] LABS: GLUCOSE,POINT OF CARE 212 MG/DL (70-110)
[2017-03-18 09:28] LABS: GLUCOSE,POINT OF CARE 204 MG/DL (70-110)
[2017-03-18] MEDS: VANCOMYCIN HCL 1.5 GM in DEXTROSE 5%-WATER 250 ML IV SCH (09:45)
[2017-03-18] MEDS: DEXTROSE 5%-WATER 1,000 ML IV SCH (09:45)
[2017-03-18] MEDS: ASCORBIC ACID 500 MG TABLET PO SCH (09:46)
[2017-03-18] MEDS: HydrALAZINE HCL 25 MG TABLET PO SCH ×2 (09:46→20:24)
[2017-03-18] MEDS: PRAMIPEXOLE DI-HCL 0.25 MG TABLET PO SCH (09:46)
[2017-03-18] MEDS: GABAPENTIN 300 MG CAPSULE PO SCH ×3 (09:46→20:24)
[2017-03-18] MEDS: MethylPREDNISolone SOD SUCC 40 MG/ML VIAL IVP SCH ×2 (09:46→20:23)
[2017-03-18] MEDS: PANTOPRAZOLE SODIUM 40 MG/VIAL IVP SCH (09:46)
[2017-03-18] MEDS: ISOSORBIDE MONONITRATE 60 MG ER TABLET PO SCH (09:47)
[2017-03-18] MEDS: SERTRALINE HCL 50 MG TABLET PO SCH (09:47)
[2017-03-18] MEDS: ALLOPURINOL 100 MG TABLET PO SCH (09:47)
[2017-03-18] MEDS: TICAGRELOR 90 MG TABLET PO SCH ×2 (09:47→20:24)
[2017-03-18] MEDS: CARVEDILOL 6.25 MG TABLET PO SCH ×2 (09:47→20:24)
[2017-03-18] MEDS: DOXAZOSIN MESYLATE 1 MG TABLET PO SCH (09:47)
[2017-03-18] MEDS: ASPIRIN 81 MG CHEWABLE TABLET PO SCH (09:48)
[2017-03-18] MEDS: INSULIN DETEMIR 100 UNITS/ML SQ SCH ×2 (09:50→20:50)
[2017-03-18 11:37] LABS: GLUCOSE,POINT OF CARE 211 MG/DL (70-110)
[2017-03-18 12:00] VITALS: BP 100/56
[2017-03-18 16:00] VITALS: BP 127/59
[2017-03-18] MEDS: CefTRIAXone 1 GM/DEXTROSE 50 ML IV SCH (17:16)
[2017-03-18 19:44] LABS: BASOPHILS % (AUTO) 0.1 % (0.0-2.0); EOSINOPHILS % (AUTO) 0 % (1.0-6.0); HEMATOCRIT 23.5 % (41-53); HEMOGLOBIN 7.1 g/dL (13.5-17.5); LYMPHOCYTES # (AUTO) 0.3 K/uL (1.0-4.8); LYMPHOCYTES % (AUTO) 2.7 % (22.0-44.0); MEAN CORPUSCULAR HEMOGLOBIN 26.8 pg (26.0-34.0); MEAN CORPUSCULAR VOLUME 89 fL (80-100); MONOCYTES # (AUTO) 0.3 K/uL (0.1-1.0); MONOCYTES % (AUTO) 2.6 % (2.0-9.0); NEUTROPHILS # (AUTO) 11.9 K/uL (1.8-7.7); PLATELET COUNT (AUTO) 114 K/uL (150-450); RED BLOOD CELL COUNT(AUTO) 2.64 MIL/uL (4.50-5.90); RED CELL DISTRIBUTION WIDTH 16.6 % (11.5-14.5); WHITE BLOOD COUNT (AUTO) 12.5 K/uL (4.5-11.0)
[2017-03-18 19:52] LABS: NEUTROPHILS % (AUTO) 94.6 % (40.0-70.0)
[2017-03-18 20:00] VITALS: BP 133/58
[2017-03-18] MEDS: ATORVASTATIN CALCIUM 20 MG TABLET PO SCH (20:24)
[2017-03-18] MEDS: NORTRIPTYLINE HCL 10 MG CAPSULE PO SCH (20:24)
[2017-03-18] MEDS: MONTELUKAST SODIUM 10 MG TABLET PO SCH (20:25)
[2017-03-18 20:46] LABS: RBC MORPHOLOGY COMMENT ABNORMAL RBC MORPH
[2017-03-19] VITALS (8 sets, daily range): BP systolic 108–134; BP diastolic 45–64
[2017-03-19] MEDS: INSULIN ASPART 100 UNITS/ML SQ PRN ×3 (00:28→12:14)
[2017-03-19] MEDS: IPRATROPIUM BROMIDE 0.5 MG/2.5 ML NEB SOLUTION NEB SCH ×3 (03:16→10:42)
[2017-03-19] MEDS: ALBUTEROL SULFATE 2.5 MG/0.5 ML NEB SOLUTION NEB SCH ×3 (03:16→10:42)
[2017-03-19] MEDS: DEXTROSE 5%-WATER 1,000 ML IV SCH (04:46)
[2017-03-19 05:44] LABS: EOSINOPHILS % (AUTO) 0.2 % (1.0-6.0); HEMATOCRIT 24.4 % (41-53); HEMOGLOBIN 7.5 g/dL (13.5-17.5); LYMPHOCYTES # (AUTO) 0.4 K/uL (1.0-4.8); LYMPHOCYTES % (AUTO) 2.6 % (22.0-44.0); MEAN CORPUSCULAR HEMOGLOBIN 27.1 pg (26.0-34.0); MEAN CORPUSCULAR HGB CONC 30.6 G/dL (31.0-37.0); MEAN CORPUSCULAR VOLUME 89 fL (80-100); MONOCYTES # (AUTO) 0.4 K/uL (0.1-1.0); MONOCYTES % (AUTO) 2.7 % (2.0-9.0); NEUTROPHILS # (AUTO) 13.2 K/uL (1.8-7.7); PLATELET COUNT (AUTO) 124 K/uL (150-450); RED BLOOD CELL COUNT(AUTO) 2.76 MIL/uL (4.50-5.90); RED CELL DISTRIBUTION WIDTH 17.1 % (11.5-14.5)
[2017-03-19 05:54] LABS: NEUTROPHILS % (AUTO) 94.5 % (40.0-70.0)
[2017-03-19 06:03] LABS: CALCIUM, TOTAL 7.3 mg/dL (8.8-10.5); CREATININE 1.56 mg/dL (0.60-1.30); MAGNESIUM 2.4 mg/dL (1.80-2.40); POTASSIUM 4.1 mmol/L (3.5-5.1)
[2017-03-19] MEDS: BUDESONIDE 0.5 MG/2 ML NEB SOLUTION NEB SCH (06:45)
[2017-03-19 08:14] LABS: RBC MORPHOLOGY COMMENT ABNORMAL RBC MORPH
[2017-03-19 08:27] LABS: GLUCOSE COMMENT 1 Received Meds; GLUCOSE,POINT OF CARE 254 MG/DL (70-110)
[2017-03-19 08:27] LABS: GLUCOSE COMMENT 1 Received Meds; GLUCOSE,POINT OF CARE 255 MG/DL (70-110)
[2017-03-19 08:27] LABS: GLUCOSE COMMENT 1 Received Meds; GLUCOSE,POINT OF CARE 252 MG/DL (70-110)
[2017-03-19] MEDS: ASCORBIC ACID 500 MG TABLET PO SCH (08:43)
[2017-03-19] MEDS: GABAPENTIN 300 MG CAPSULE PO SCH (08:43)
[2017-03-19] MEDS: ASPIRIN 81 MG CHEWABLE TABLET PO SCH (08:43)
[2017-03-19] MEDS: HydrALAZINE HCL 25 MG TABLET PO SCH (08:43)
[2017-03-19] MEDS: PANTOPRAZOLE SODIUM 40 MG/VIAL IVP SCH (08:43)
[2017-03-19] MEDS: VANCOMYCIN HCL 1.5 GM in DEXTROSE 5%-WATER 250 ML IV SCH (08:44)
[2017-03-19] MEDS: CARVEDILOL 6.25 MG TABLET PO SCH (08:44)
[2017-03-19] MEDS: MethylPREDNISolone SOD SUCC 40 MG/ML VIAL IVP SCH (08:44)
[2017-03-19] MEDS: TICAGRELOR 90 MG TABLET PO SCH (08:45)
[2017-03-19] MEDS: ISOSORBIDE MONONITRATE 60 MG ER TABLET PO SCH (08:45)
[2017-03-19] MEDS: DOXAZOSIN MESYLATE 1 MG TABLET PO SCH (08:45)
[2017-03-19] MEDS: PRAMIPEXOLE DI-HCL 0.25 MG TABLET PO SCH (08:46)
[2017-03-19] MEDS: SERTRALINE HCL 50 MG TABLET PO SCH (08:46)
[2017-03-19] MEDS: ALLOPURINOL 100 MG TABLET PO SCH (08:46)
[2017-03-19] MEDS: INSULIN DETEMIR 100 UNITS/ML SQ SCH (08:51)
[2017-03-19 09:52] LABS: GLUCOSE,POINT OF CARE 237 MG/DL (70-110)
[2017-03-19 10:26] LABS: ABG PCO2 35 mmHg (35-45); ABG PH 7.512 (7.35-7.450); ALLEN TEST, BLOOD GAS POS; TEMPERATURE, FAHRENHEIT, BG 98.6 FAHREN (96.0-98.6)
[2017-03-19 10:27] LABS: ABG BASE EXCESS 4.6 mmol/L (-2.0-3.0); ABG HCO3 28.4 mmol/L (22.0-26.0); ABG OXYHEMOGLOBIN 95.6 % (94.0-100.0)
[2017-03-19 10:28] LABS: ABG A-A DIFF O2 149.5 mmHg (10-20.0)
[2017-03-19] MEDS ORDERED: ONDANSETRON HCL 4 MG/2 ML VIAL IVP PRN ×2 (13:15→13:30)
[2017-03-19] MEDS ORDERED: DiphenhydrAMINE HCL 50 MG/ML VIAL IVP PRN ×2 (13:15→13:30)
[2017-03-19] MEDS ORDERED: MORPHINE SULFATE 100 MG/NS/PF 100 ML IV PRN (13:21)
[2017-03-19] MEDS: MORPHINE SULFATE 100 MG/NS/PF 100 ML IV PRN (16:09)
[2017-03-19 18:22] LABS: GLUCOSE COMMENT 1 Received Meds; GLUCOSE,POINT OF CARE 275 MG/DL (70-110)
[2017-03-20 05:09] VITALS: BP 113/44
[2017-03-20 07:20] VITALS: BP 112/49
[2017-03-20] MEDS: MORPHINE SULFATE 100 MG/NS/PF 100 ML IV PRN ×2 (09:21→18:03)
[2017-03-20 11:20] VITALS: BP 101/45
[2017-03-20 15:20] VITALS: BP 111/52
[2017-03-20 19:24] VITALS: BP 113/48
[2017-03-20] MEDS ORDERED: SCOPOLAMINE HYDROBROMIDE 1.5 MG PATCH TD SCH (20:30)
[2017-03-20 23:56] VITALS: BP 113/48
[2017-03-21] MEDS: MORPHINE SULFATE 100 MG/NS/PF 100 ML IV PRN ×2 (04:26→21:02)
[2017-03-21 05:58] VITALS: BP 118/42
[2017-03-21 08:02] VITALS: BP 113/46
[2017-03-21 11:10] VITALS: BP 102/44
[2017-03-21 15:38] VITALS: BP 99/45
[2017-03-21 19:44] VITALS: BP 95/40
[2017-03-21] MEDS: ACETAMINOPHEN 650 MG RECTAL SUPPOSITORY PR PRN (21:54)
[2017-03-21 23:21] VITALS: BP 92/45
[2017-03-22] MEDS: ACETAMINOPHEN 650 MG RECTAL SUPPOSITORY PR PRN (03:54)
[2017-03-22 04:41] VITALS: BP 85/34
[2017-03-22 07:39] VITALS: BP 89/30
[2017-03-22] MEDS: MORPHINE SULFATE 100 MG/NS/PF 100 ML IV PRN (11:19)
== END 2017-03-22 12:30 | disposition expired | DRG 207 ==
LOC: EMS 13:52 → 5N 19:41 → ICU 03-12 15:35 → 6N 03-19 17:25
PROVIDERS: ADMIT Family Medicine; ATTEND Family Medicine
PROC: 0BH17EZ Insertion of Endotracheal Airway into Trachea, Via Natural or Artificial Opening (ICD-10-PCS; 2017-03-12)
PROC: 5A1955Z Respiratory Ventilation, Greater than 96 Consecutive Hours (ICD-10-PCS; 2017-03-12)
PROC: 02HV33Z Insertion of Infusion Device into Superior Vena Cava, Percutaneous Approach (ICD-10-PCS; 2017-03-12)
PROC: 5A12012 Performance of Cardiac Output, Single, Manual (ICD-10-PCS; 2017-03-12)
PROC: 30233N1 Transfusion of Nonautologous Red Blood Cells into Peripheral Vein, Percutaneous Approach (ICD-10-PCS; principal; 2017-03-14)
DX: J96.20 Acute and chronic respiratory failure, unspecified whether with hypoxia or hypercapnia (principal); I50.31 Acute diastolic (congestive) heart failure; E43 Unspecified severe protein-calorie malnutrition; A41.9 Sepsis, unspecified organism; I13.0 Hypertensive heart and chronic kidney disease with heart failure and stage 1 through stage 4 chronic kidney disease, or unspecified chronic kidney disease; N17.9 Acute kidney failure, unspecified; J44.1 Chronic obstructive pulmonary disease with (acute) exacerbation; E87.3 Alkalosis; G93.1 Anoxic brain damage, not elsewhere classified; N39.0 Urinary tract infection, site not specified; R57.9 Shock, unspecified; K92.2 Gastrointestinal hemorrhage, unspecified; B96.4 Proteus (mirabilis) (morganii) as the cause of diseases classified elsewhere; Z66 Do not resuscitate; I46.9 Cardiac arrest, cause unspecified; I48.91 Unspecified atrial fibrillation; D64.9 Anemia, unspecified; I25.10 Atherosclerotic heart disease of native coronary artery without angina pectoris; N18.9 Chronic kidney disease, unspecified; Z51.5 Encounter for palliative care; E78.5 Hyperlipidemia, unspecified; E87.5 Hyperkalemia; E66.9 Obesity, unspecified; E11.22 Type 2 diabetes mellitus with diabetic chronic kidney disease; E87.6 Hypokalemia; M10.9 Gout, unspecified; G47.33 Obstructive sleep apnea (adult) (pediatric); G89.4 Chronic pain syndrome; M19.90 Unspecified osteoarthritis, unspecified site; F03.90 Unspecified dementia, unspecified severity, without behavioral disturbance, psychotic disturbance, mood disturbance, and anxiety; E11.21 Type 2 diabetes mellitus with diabetic nephropathy; Z98.61 Coronary angioplasty status; Z87.891 Personal history of nicotine dependence; Z68.35 Body mass index [BMI] 35.0-35.9, adult; Z95.5 Presence of coronary angioplasty implant and graft; Z22.322 Carrier or suspected carrier of Methicillin resistant Staphylococcus aureus; I25.2 Old myocardial infarction; Z79.82 Long term (current) use of aspirin; Z79.899 Other long term (current) drug therapy; Z79.4 Long term (current) use of insulin
CPT/HCPCS: 70450; 71250; 82271; 82436; 82570; 82607; 82746; 82805; 82962; 83540; 83605; 83735; 84100; 84132; 84295; 84300; 84443; 84540; 85014; 85018; 86850; 86870; 86880; 86900; 86901; 86905; 86906; 86922; 86970; 87040; 87070; 87081; 87086; 87205; 92950; 93005; 93306; 94002; 94003; 94640; 94644; 95816; 96365; 96375; 99291; C9113; J0282; J0696; J1100; J1815; J1940; J2270; J2370; J2704; J2920; J2930; J3010; J3370; J3480; J3490; J7040; J7050; J7060; P9016